=== PATIENT | female | born 1945 | race Caucasian/White ===

== ENCOUNTER 2017-07-11 14:02 | Inpatient (IN) | payer MEDICARE ==
[2017-07-11] MEDS ORDERED: HYDROcodone/ACETAMIN 5-325 MG* 1 TAB PO ONE (15:19)
[2017-07-11] MEDS ORDERED: Diltiazem TAB* 60 MG PO ONE (15:19)
--- NOTE | 2017-07-11 15:20 | RAD ---
INDICATION: Weakness COMPARISON: None TECHNIQUE: An AP portable view obtained at 1508 hours is submitted. FINDINGS: Bones/Soft Tissues: There are no acute bony findings. Cardiomediastinal: The cardiomediastinal silhouette is normal. Lungs: There are no infiltrates. Pleura: There are no pleural effusions. Other: None IMPRESSION: NO ACTIVE DISEASE.
[2017-07-11 15:41] LABS: ABS Basophils 0.1 10^3/ul (0-0.2); ABS Eosinophils 0 10^3/ul (0-0.6); ABS Lymphocytes 2.1 10^3/ul (1.0-4.8); ABS Monocytes 0.7 10^3/ul (0-0.8); ABS Neutrophils 5.5 10^3/ul (1.5-7.7); ABS Nucleated RBC 0 10^3/ul; Eosinophil % 0.3 % (0-6); Hematocrit 42 % (35-47); Hemoglobin 14.4 g/dl (12.0-16.0); Lymphocyte % 24.9 % (25-47); Mean Corpuscular HGB Conc 34 g/dl (31-36); Mean Corpuscular Hemoglobin 31 pg (27-31); Mean Corpuscular Volume 92 fL (80-97); Mean Platelet Volume 9.4 um3 (7.4-10.4); Nucleated Red Blood Cells % 0; Platelet Count 209 10^3/ul (150-450); Red Blood Count 4.61 10^6/ul (4.0-5.4); Red Cell Distribution Width 14 % (10.5-15); White Blood Count 8.4 10^3/ul (3.5-10.8)
[2017-07-11 15:48] LABS: INR 1.15 (0.77-1.02)
[2017-07-11 15:58] LABS: EGFR Non-African American 86.5 (>60)
[2017-07-11] MEDS ORDERED: Diltiazem IV* 5 MG/ML 5 ML VIAL (for loading dose/IV Push) (25 MG) IV SLOW PU ONE (16:31)
[2017-07-11] MEDS ORDERED: NS 0.9% 1000 ML* 1,000 ML IV ONE (16:38)
[2017-07-11] MEDS ORDERED: Amoxicillin/Clavulanate TAB* 500 MG PO ONE (16:53)
[2017-07-11] MEDS ORDERED: Diltiazem DRIP* 100 MG/100 ML ADDV.BAG IVPB ONE (17:24)
[2017-07-11] MEDS ORDERED: Diltiazem IV VIAL* 125 MG in NS 0.9% 100 ML* 100 ML IV ONE (17:45)
[2017-07-11 17:46] LABS: Urine Appearance Clear; Urine Blood 2+ (Negative); Urine Color Yellow; Urine Ketones Trace (Negative); Urine Protein Negative (Negative); Urine Urobilinogen Negative (Negative)
[2017-07-11] MEDS ORDERED: Diltiazem IV VIAL* 125 MG in NS 0.9% 100 ML* 100 ML IVPB SCH (18:00)
[2017-07-11] MEDS: Acetaminophen TAB* 325 MG PO PRN (21:45)
[2017-07-11] MEDS: DOXYcycline CAP(*) 100 MG PO SCH (22:32)
--- NOTE | 2017-07-11 22:58 | HP ---
CC: Richard Fontanez NP; Dr. Lundy * HISTORY AND PHYSICAL: DATE OF ADMISSION: 07/11/17 PROVIDER: Marquise Hurtado NP ATTENDING PHYSICIAN: Dr. Alexander * (report dictated by Marquise Hurtado NP). PRIMARY CARE DOCTOR: Richard Fontanez NP DIP FILLER: Dr. Lundy. CHIEF COMPLAINT: Nose bleed and rapid AFib. HISTORY OF PRESENT ILLNESS: Ms. Amor is a 71-year-old female with a past medical history of atrial fibrillation, on Xarelto; hypertension; and history of prior nose bleeds, status post cauterization, who reports around noon today she developed a spontaneous nose bleed out of her right nostril and could not control it and came to the emergency department around 2 o'clock. The emergency room physician placed a 5.5 cm Rapid Rhino into the right nostril with 8 mm of air and bleeding ceased. The patient then went into rapid atrial fibrillation with a heart rate into the 150s. She was given Cardizem 10 mg IV and 60 mg p.o., which did initially slow her rate down to the 90s, but then shortly thereafter increase to 130s to 150. Hospital Medicine was asked to evaluate for admission. PAST MEDICAL HISTORY: 1. Hypertension. 2. Atrial fibrillation. 3. History of epistaxis in 2013, where she had 2 to 3 subsequent nose bleeds and is status post cauterization. 3. Recent diagnosis of Lyme disease, currently on 1-month course of doxycycline. CURRENT MEDICATIONS: 1. Verapamil ER 120 mg p.o. daily. 2. Xarelto 20 mg p.o. daily. 3. Losartan 50 mg p.o. daily. 4. Doxycycline 100 mg p.o. b.i.d. ALLERGIES: No known allergies. FAMILY HISTORY: Her mother of a stroke and had a history of diabetes. Her father had a history of lung cancer and melanoma. SOCIAL HISTORY: Denies history of tobacco abuse. She reports that she drinks 2 to 3 alcoholic ciders a week. She currently lives alone. She has one grown son, Favian Amor, who is her healthcare proxy, his phone number is [phone]. REVIEW OF SYSTEMS: A 14-point review of systems was performed. All the pertinent positives and negatives are mentioned in the history of present illness. Otherwise are negative. PHYSICAL EXAMINATION GENERAL APPEARANCE: Well-developed elderly female, lying in the emergency room stretcher, in no acute distress, alert and oriented x3. VITAL SIGNS: Temperature 97.5, heart rate 140, respirations 20, O2 sat 97% on room air, blood pressure is 145/106. HEENT: Head is normocephalic, atraumatic. Pupils are equal and reactive to light. Oropharynx is clear. Moist mucous membranes. Right nares is packed. There is noted dry blood. NECK: Supple. LUNGS: Clear to auscultation bilaterally. Good aeration throughout. CARDIAC: S1, S2. Regular rate and rhythm. No murmur, rub, or gallop appreciated. No lower extremity edema noted. ABDOMEN: Soft, nontender, nondistended. Normal bowel sounds throughout. MUSCULOSKELETAL: No clubbing, cyanosis, or edema. Full range of motion in all extremities. Strength is 5/5 throughout. SKIN: Warm, pink, and dry. No rashes, lesions, or open wounds noted. NEUROLOGIC: Cranial nerves II through XII are grossly intact. LABORATORY DATA AND DIAGNOSTIC STUDIES: Sodium 141, potassium 3.8, chloride 106, carbon dioxide 29, anion gap 6, BUN 22, creatinine 0.67, glucose 110, lactic acid 1.3, calcium 9.7. Total bilirubin 0.90, AST 26, ALT 18, alkaline phosphatase 101. Troponin 0.01. Total protein 7.0, albumin 3.9. INR 1.15. WBC 8.4, RBC 4.61, Hgb 14.4, HCT 42, MCV 92, MCH 31, MCHC 34, RDW 14, platelet count 209. Chest x-ray, impression: No active disease. EKG showing atrial fibrillation with RVR with a rate of 154. ASSESSMENT AND PLAN: Ms. Amor is a 71-year-old female with a past medical history of atrial fibrillation, on Xarelto; history of epistaxis, status post cauterization; and history of hypertension, who had a spontaneous nose bleed today, in which she came to the emergency department and was controlled quite quickly with the balloon in the right nares. She then went into rapid atrial fibrillation. 1. Rapid atrial fibrillation with rapid ventricular response. The patient has been started on a Cardizem drip. Her initial cardiac enzyme is negative at 0.01. We will check second troponin. At this point, plan to hold tonight's dose of Xarelto due to the epistaxis. 2. Epistaxis, well controlled at this time. The balloon will need to be removed in 24 to 48 hours. I have left a message with the ENT office; however, I am awaiting a phone call back and I have not spoken to the ENT. Tomorrow, this provider will need to touch base with the ENT to discuss the plan on removing the packing. Trend H and H. At this point, the patient's H and H is normal. 3. Hypertension. At this point, plan to hold losartan and verapamil due to the patient is on a Cardizem drip. 4. Lyme disease, currently being treated with 1-month course of doxycycline. The patient is following with Dr. Clark. 5. DVT prophylaxis. Contraindicated in the setting of acute bleed. 6. Advance directives. Full code. 7. Disposition. Inpatient. TIME SPENT: Approximately 60 minutes were spent on this admission. This case was discussed with attending physician, Dr. Alexander, who agrees with the plan of care. MARQUISE HURTADO, [employer] [id number]/[facility] #: [id number] KUN
[2017-07-11 23:28] LABS: Hematocrit 39 % (35-47); Hemoglobin 13.2 g/dl (12.0-16.0)
[2017-07-12] MEDS: Acetaminophen TAB* 325 MG PO PRN (04:13)
[2017-07-12 06:26] LABS: ABS Basophils 0.1 10^3/ul (0-0.2); ABS Eosinophils 0 10^3/ul (0-0.6); ABS Lymphocytes 2.2 10^3/ul (1.0-4.8); ABS Monocytes 0.6 10^3/ul (0-0.8); ABS Neutrophils 4.4 10^3/ul (1.5-7.7); ABS Nucleated RBC 0 10^3/ul; Eosinophil % 0.5 % (0-6); Hematocrit 40 % (35-47); Lymphocyte % 29.9 % (25-47); Mean Corpuscular HGB Conc 35 g/dl (31-36); Mean Corpuscular Hemoglobin 32 pg (27-31); Mean Corpuscular Volume 91 fL (80-97); Mean Platelet Volume 9.2 um3 (7.4-10.4); Nucleated Red Blood Cells % 0; Platelet Count 202 10^3/ul (150-450); Red Blood Count 4.45 10^6/ul (4.0-5.4); Red Cell Distribution Width 13 % (10.5-15); White Blood Count 7.4 10^3/ul (3.5-10.8)
[2017-07-12 06:43] LABS: EGFR Non-African American 108.6 (>60)
[2017-07-12] MEDS ORDERED: Verapamil SR CAP* 180 MG PO SCH (11:00)
[2017-07-12] MEDS ORDERED: Losartan TAB* 25 MG PO SCH (11:00)
[2017-07-12] MEDS: DOXYcycline CAP(*) 100 MG PO SCH (11:50)
--- NOTE | 2017-07-12 12:28 | PN ---
Subjective Date of Service: 07/12/17 Interval History: No significant nose bleed with pack in place. She can feel her atrial fib when it is rapid. She states she has episodes of atrial fib many or most days. Objective Active Medications: Acetaminophen (Tylenol Tab*) 650 mg PO Q4H PRN PRN Reason: PAIN Last Admin: 07/12/17 04:13 Dose: 650 mg Doxycycline Hyclate (Vibramycin Cap(*)) 100 mg PO BID HA Last Admin: 07/12/17 11:50 Dose: 100 mg Diltiazem HCl 125 mg/ Sodium (Chloride) 125 mls @ 5 mls/hr IV ED ONCE ONE PRN Reason: Protocol Stop: 07/12/17 18:44 Last Admin: 07/11/17 17:52 Dose: 5 mls/hr Diltiazem HCl 125 mg/ Sodium (Chloride) 125 mls @ 5 mls/hr IVPB .PER PARAMETERS HA; 5 MG/HR PRN Reason: Protocol Last Admin: 07/12/17 08:50 Dose: 8 mls/hr Losartan Potassium (Cozaar Tab*) 25 mg PO DAILY [facility] Last Admin: 07/12/17 10:49 Dose: 25 mg Verapamil HCl (Calan Sr Cap*) 180 mg PO DAILY [facility] Last Admin: 07/12/17 11:15 Dose: 180 mg Vital Signs - 8 hr 07/12/17 07/12/17 07/12/17 04:30 04:45 05:00 Temperature Pulse Rate 95 97 91 Respiratory 14 19 18 Rate Blood Pressure 176/119 167/103 172/109 (mmHg) O2 Sat by Pulse 97 96 95 Oximetry 07/12/17 07/12/17 07/12/17 05:15 05:17 05:30 Temperature Pulse Rate 97 94 93 Respiratory 18 21 20 Rate Blood Pressure 208/189 155/112 152/102 (mmHg) O2 Sat by Pulse 97 95 93 Oximetry 07/12/17 07/12/17 07/12/17 05:45 06:00 06:15 Temperature Pulse Rate 95 99 98 Respiratory 18 15 15 Rate Blood Pressure 161/98 161/104 159/115 (mmHg) O2 Sat by Pulse 93 95 96 Oximetry 07/12/17 07/12/17 07/12/17 06:45 07:00 07:15 Temperature Pulse Rate 101 93 100 Respiratory 13 19 19 Rate Blood Pressure 142/101 151/109 162/103 (mmHg) O2 Sat by Pulse 96 95 94 Oximetry 07/12/17 07/12/17 07/12/17 07:30 07:45 07:50 Temperature 99.1 F Pulse Rate 97 96 Respiratory 20 15 Rate Blood Pressure 150/104 139/98 (mmHg) O2 Sat by Pulse 94 97 Oximetry 07/12/17 07/12/17 07/12/17 08:00 08:15 08:30 Temperature Pulse Rate 95 108 96 Respiratory 12 20 12 Rate Blood Pressure 134/101 156/111 152/100 (mmHg) O2 Sat by Pulse 96 97 96 Oximetry 07/12/17 07/12/17 07/12/17 08:45 09:00 09:31 Temperature Pulse Rate 102 107 115 Respiratory 13 17 20 Rate Blood Pressure 160/109 153/117 154/83 (mmHg) O2 Sat by Pulse 96 96 95 Oximetry 07/12/17 07/12/17 07/12/17 09:45 10:00 10:15 Temperature Pulse Rate 101 98 93 Respiratory 27 20 21 Rate Blood Pressure 127/91 159/86 141/94 (mmHg) O2 Sat by Pulse 96 97 96 Oximetry 07/12/17 07/12/17 07/12/17 10:30 11:00 11:01 Temperature Pulse Rate 100 115 96 Respiratory 21 15 18 Rate Blood Pressure 149/103 162/114 (mmHg) O2 Sat by Pulse 96 94 95 Oximetry 07/12/17 07/12/17 07/12/17 11:15 11:30 11:46 Temperature Pulse Rate 94 95 91 Respiratory 13 28 21 Rate Blood Pressure 141/103 147/103 148/90 (mmHg) O2 Sat by Pulse 98 97 97 Oximetry 07/12/17 12:00 Temperature Pulse Rate 98 Respiratory 12 Rate Blood Pressure 142/93 (mmHg) O2 Sat by Pulse 96 Oximetry Oxygen Devices in Use Now: None Appearance: Alert, partly up in ICU bed. In good spirits. Looks comfortable. Eyes: No Scleral Icterus Cardiovascular: No Edema, - - irreg Extremities: No Edema, No Clubbing, Cyanosis, - Skin: No Rash or Ulcers, No Nodules or Sclerosis, - Neurological: Alert and Oriented x 3, NL Sensation Result Diagrams: 07/12/17 06:11 07/12/17 06:11 Microbiology and Other Data: Microbiology 07/11/17 18:30 Nasal Screen MRSA (PCR)(MADHAV) - Final Nasal Mrsa Not Detected Assess/Plan/Problems-Billing Assessment: - Patient Problems (1) Atrial fibrillation Current Visit: Yes Status: Acute Code(s): I48.91 - UNSPECIFIED ATRIAL FIBRILLATION SNOMED Code(s): 99331149 Comment: Increase verapamil to 180 mg. Re-start rivaroxaban. (2) Epistaxis Current Visit: Yes Status: Acute Code(s): R04.0 - EPISTAXIS SNOMED Code(s) : 829998387 Comment: Continue doxycycline. Fup with ENT. Hct 40 07/12. (3) HTN (hypertension) Current Visit: Yes Status: Acute Code(s): I10 - ESSENTIAL (PRIMARY) HYPERTENSION SNOMED Code(s): 59202931 Comment: Resume losartan at home dose.
[2017-07-12] MEDS ORDERED: Potassium Chlor TAB* 10 MEQ TAB.ER PO ONE (12:30)
[2017-07-12] MEDS ORDERED: Rivaroxaban TAB(*) 20 MG TAB PO SCH (14:00)
[2017-07-12] MEDS ORDERED: Metoprolol Tartrate TAB* 25 MG PO SCH (16:10)
[2017-07-12 18:38] VITALS: BP 151/96
--- NOTE | 2017-07-13 10:59 | DS ---
CC: Richard Fontanez HEALTH COMPANION; Dr. Montague.* DISCHARGE SUMMARY: DATE OF ADMISSION: 07/11/17 DATE OF DISCHARGE: 07/12/17 HISTORY OF PRESENT ILLNESS: This 71-year-old woman presented with epistaxis in the emergency room. She went into atrial fibrillation with rapid ventricular response. She had not taken her verapamil that evening yet. She was placed on a diltiazem infusion. She told me that she frequently gets episodes of atrial fibrillation may be on most or many days. She is able to tell when her heart rate is quite fast. She had a nasal pack in place in the emergency room. Her hematocrit was stable here. In the morning, she was given verapamil 180 mg by mouth, which is a step up from what she took at home, 120 mg. The diltiazem was stopped. Her heart rate was fairly well controlled until she did anything. I then gave her metoprolol 12.5 mg, which she used to take b.i.d. at home. Last heart rate recorded after the metoprolol was 94. [facility] will [facility] on 07/14[facility]17 at 9:45 in the morning for removal of her packing. She was instructed not to take Xarelto until she sees ENT provider. She did not get any Xarelto at anytime during this hospital stay. FINAL DIAGNOSES: 1. Epistaxis. 2. Recurrent atrial fibrillation. 3. Hypertension. DISCHARGE MEDICATIONS: 1. Losartan one half of 50 mg tablet daily. 2. Metoprolol tartrate 12.5 mg every 12 hours. 3. Verapamil SR 180 mg daily. 4. Doxycycline 100 mg b.i.d. Rivaroxaban is on hold. [id number]/[facility] #: [id number] MTDD
== END 2017-07-12 17:52 | disposition home or self-care (01) | DRG 309 ==
LOC: ED 14:02 → ICU 17:43
PROVIDERS: ADMIT Internal Medicine; ATTEND Internal Medicine
PROC: 2Y41X5Z Packing of Nasal Region using Packing Material (ICD-10-PCS; principal; 2017-07-12)
DX: I48.91 Unspecified atrial fibrillation (principal); A69.20 Lyme disease, unspecified; R04.0 Epistaxis; I10 Essential (primary) hypertension; Z82.3 Family history of stroke; Z83.3 Family history of diabetes mellitus; Z80.1 Family history of malignant neoplasm of trachea, bronchus and lung; Z80.8 Family history of malignant neoplasm of other organs or systems; Z72.89 Other problems related to lifestyle
CPT/HCPCS: 36415; 71045; 80048; 80053; 81003; 81015; 83605; 83735; 84484; 85014; 85018; 85025; 85610; 86850; 86900; 86901; 87086; 87641; 93005; 99285; A9270-GY

== ENCOUNTER 2017-08-05 06:58 | Emergency (ER) | payer MEDICARE ==
[2017-08-05] MEDS ORDERED: Lidocaine 2% PF * 5 ML VIAL ONE (07:38)
[2017-08-05] MEDS ORDERED: DOXYcycline CAP(*) 100 MG PO ONE (07:39)
[2017-08-05 08:07] VITALS: BP 141/91
--- NOTE | 2017-08-05 08:49 | ED ---
Willie Dodson Tecjoon, scribed for Ruba Gilmore MD on 08/05/17 at 0738 . Skin Complaint - HPI Summary HPI Summary: This patient is a 71 year old female presenting to [facility] with a chief complaint of tick bite since approx. yesterday. Patient states that she had a tick bite to her right arm. Patient pulled out the tick but doesnt think she got everything. Patient is unsure how long the tick was attached to her arm. The pain is rated 2/10 in severity. Symptoms aggravated by nothing. Symptoms alleviated by nothing. The patient treated the sx with nothing [employer]. Patient additionally reports right arm pain. - History of Current Complaint Chief Complaint: EDAnimalBite Time Seen by Provider: 08/05/17 07:25 Stated Complaint: TICK BITE Hx Obtained From: Patient Onset/Duration: Started Days Ago, Still Present Skin Exposure Onset/Duration: Days Ago Timing: Constant Onset Severity: Mild Current Severity: Mild Pain Intensity: 2 Pain Scale Used: 0-10 Numeric Skin Location: Arm - right Character: Redness Aggravating Symptom(s): Nothing Alleviating Symptom(s): Nothing Associated Signs & Symptoms: Tenderness - Additional Pertinent History Primary Care Physician: [id number] - Allergy/Home Medications Allergies/Adverse Reactions: Allergies Allergy/AdvReac Type Severity Reaction Status Date / Time No Known Allergies Allergy Verified 08/05/17 07:20 PMH/Surg Hx/FS Hx/Imm Hx Previously Healthy: Yes Cardiovascular History: Reports: Hx Hypertension Sensory History: Denies: Hx Contacts or Glasses, Hx Hearing Aid Opthamlomology History: Denies: Hx Contacts or Glasses - Cancer History Hx Chemotherapy: No Hx Radiation Therapy: No Infectious Disease History: No Infectious Disease History: Denies: Traveled Outside the [place] in Last 30 Days - Family History Known Family History: Positive: Hypertension - Social History Lives: With Family Alcohol Use: Occasionally Alcohol Amount: 3 5% beverages per week Substance Use Type: Reports: None Smoking Status (MU): Former Smoker Review of Systems Negative: Fever Positive: Other - right arm pain Positive: Other - tick finn on right arm All Other Systems Reviewed And Are Negative: Yes Physical Exam - Summary Physical Exam Summary: GENERAL: Patient is a well developed and nourished female who is lying comfortable in the stretcher. Patient is not in any acute respiratory distress. HEAD AND FACE: Normocephalic EYES: PERRLA, EOMI x 2. EARS: Hearing grossly intact. MOUTH: Oropharynx within normal limits. NECK: Supple, trachea is midline, no adenopathy, no JVD, no carotid bruit. CHEST: Symmetric, no tenderness at palpation LUNGS: Clear to auscultation bilaterally. No wheezing or crackles. CVS: Regular rate and rhythm, S1 and S2 present, no murmurs or gallops appreciated. ABDOMEN: Soft, non-tender. Bowel sounds are normal. No abdominal abnormal pulsations. EXTREMITIES: Full ROM in all major joints, no edema, no cyanosis or clubbing. NEURO: Alert and oriented x 3. No acute neurological deficits. Speech is normal and follows commands. SKIN: Tick finn on the right antecubital fossa at the lateral aspect Triage Information Reviewed: Yes Vital Signs On Initial Exam: Initial Vitals Temp Pulse Resp BP Pulse Ox 98.0 F 81 16 166/98 98 08/05/17 07:00 08/05/17 07:00 08/05/17 07:00 08/05/17 07:00 08/05/17 07:00 Vital Signs Reviewed: Yes Procedures - Procedure Summary Procedure Summary: Tick Bite Removal: Patient was injected with 1cc of 2% lidocaine in area of tick bite (right antecubital forearm). Tweezer was used to remove embedded tick bite. There were no complications Diagnostics - Vital Signs Vital Signs Temp Pulse Resp BP Pulse Ox 08/05/17 07:00 98.0 F 81 16 166/98 98 - Laboratory Lab Statement: Any lab studies that have been ordered have been reviewed, and results considered in the medical decision making process. Course/Dx - Course Course Of Treatment: This patient is a 71 year old female presenting to [facility] with a chief complaint of tick bite since approx. yesterday. Patient states that she had a tick bite to her right arm. Patient pulled out the tick but doesn t think she got everything. In the ED course the patient was given doxycycline. Patient's tick bite area was numbed with lidocaine and embedded tick bite was removed. Patient will be discharged with a dx of tick bite. Patient is advised to follow up with PCP in 3 days. The patient is agreeable with this plan. - Diagnoses Provider Diagnoses: Tick bite Discharge - Sign-Out/Discharge Documenting (check all that apply): Discharge/Admit/Transfer - Discharge Plan Condition: Stable Disposition: HOME Patient Education Materials: Lyme Disease (ED), Tick Bite (ED) Referrals: Richard Fontanez, HELP DESK AGENT [Primary Care Provider] - 3 Days Additional Instructions: Return to the ED for any new or worsening symptoms. - Billing Disposition and Condition Condition: STABLE Disposition: HOME The documentation as recorded by the Willie pizarro Tecjoon accurately reflects the service I personally performed and the decisions made by Mando torres Tudie-Ann, MD.
== END 2017-08-05 08:06 | disposition home or self-care (01) ==
LOC: ED 06:58
DX: S50.361A Insect bite (nonvenomous) of right elbow, initial encounter (principal); W57.XXXA Bitten or stung by nonvenomous insect and other nonvenomous arthropods, initial encounter; Y93.9 Activity, unspecified; Y92.9 Unspecified place or not applicable; I10 Essential (primary) hypertension; Z87.891 Personal history of nicotine dependence
CPT/HCPCS: 99281; A9270-GY

== ENCOUNTER 2018-09-30 12:46 | Emergency (ER) | payer MEDICARE ==
--- OUTSIDE RECORDS SUMMARY | 2018-09-30 13:10 | XMS REPORT | Continuity of Care Document ---
:1945 External Reference #:[id number] Author Name POOJA Almaraz Address [address] [place] [address] Care Team Providers Name Role Phone POOJA Almaraz Care Team Information Film Splicer Unavailable Payers Date Identification Numbers Payment Provider Subscriber Effective: 2010 Policy Number: [id number] Medicare - Bswny Umd Hector Cartagena Expires: 2017 PayID: [id number] [address] [place] [address] Effective: 2013 Policy Number: [id number] Maribel Hector Cartagena Expires: 2017 [facility] Claim [address] [place] [address] Effective: 2017 Policy Number: [employer] Hector Cartagena [id number] [facility] PayID: [id number] [address] [address] [place] [address] Family History Date Family Member(s) Observation Comments Onset: (08/1965) Father Cancer, Prostate Cancer had spread to some lymph glands. He smoked heavily. Onset: (02/1976) Father Malignant Melanoma : (02/1976) Father due to Cancer Onset: (12/1990) Mother Diabetes Onset: (12/1988) Mother Hypertension : (02/2001) Mother due to Stroke She was 1 month from being age 90. 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 09/07/2018 1% Gel to right knee 4 [facility], [employer] times daily if needed for pain Losartan Potassium 1 by mouth every 90tabs I10 [facility] R. 09/06/2018 50mg Tablets day [facility], [employer] Verapamil HCL ER 1 by mouth daily 90caps I10 [facility] R. 09/06/2018 120mg Caps ER for blood [facility], [employer] 24HR pressure Hydrochlorothiazide 1 by mouth every 30tabs R60.9 [facility] R. 06/26/2018 25mg day [facility], [employer] Tablets Atorvastatin Calcium 1 by mouth every 90tabs I10 [facility] R. 01/05/2018 20mg day [facility], [facility] Tablets Atenolol Take One Tablet 30tabs I10 [facility] R. 09/21/2017 25mg Tablets By Mouth Every [facility], [employer] Day Discontinue Metoprolol Vitamin D3 1 po some days [facility] R. 06/27/2013 1000Unit Capsules [facility] Doxycycline Hyclate Unknown 100mg Capsules Sulfamethoxazole-Trimetho Take One Tablet Unknown prim By Mouth Twice A 400-80mg Tablets Day Xarelto Take One Tablet Unknown 20mg Tablets By Mouth Every Day Cardiovid Plus Unknown Capsules Enzyme Digest daily Unknown Capsules Fish Oil Unknown Methylcobalamin Unknown Activated Vegetable Unknown Charcoal 560mg Capsules Probiotic Unknown Coq-10 1 by mouth every Unknown 150mg Capsules day Calcium 600 1000mg by mouth Unknown 600mg Tablets weekly History Medications Verapamil HCL ER 1 by mouth every 30caps I10 [facility] R[facility] 08/28/2018 - 100mg Caps ER day [facility], [employer] 09/06/2018 24HR Losartan Potassium 1 by mouth every 30tabs I10 [facility] R. 08/28/2018 - 100mg day [facility], [facility] 09/06/2018 Tablets Losartan Potassium 1 by mouth every 30tabs I10 [facility] R. 07/27/2018 - 50mg Tablets day [facility], [facility] 08/28/2018 Verapamil HCL ER 1 by mouth daily 30caps I10 [facility] R. 07/27/2018 - 120mg Caps ER for blood [facility], [facility] 08/28/2018 24HR pressure, replaces diltiazem Hydrochlorothiazide 1 by mouth every 30tabs R60.9 [facility] 06/[facility]2018 - 12.5mg day for swelling [facility], [facility] 06/26/2018 Tablets Verapamil HCL ER Take One Capsule 90caps I10 [facility] R. 08/21/2017 - 180mg Caps ER By Mouth Every [facility], [facility] 07/27/2018 24HR Day Losartan Potassium Take One Tablet 30tabs I10 [facility] 08/21/2017 - 25mg Tablets Once Daily [facility] 07/27/2018 Doxycycline Hyclate take 1 capsule 60caps R53.81 [facility] R. 08/10/2017 - 100mg by mouth 2 times [facility] 09/21/2017 Capsules per day Clotrimazole slowly dissolve 70units B37.0 [facility] R. 07/17/2017 - 10mg Lozenges in mouth 5 times [facility] 08/16/2017 daily for 14 days Doxycycline Hyclate 1 tab by mouth 56tabs [facility] 06/27/2017 - 100mg twice a day for Shortle, [employer] 08/10/2017 Tablets 28 days for infection Verapamil HCL ER take one tablet 30tabs I10 [facility] 01/13/2017 - 120mg Tablets by mouth every MD Elizabeth 08/21/2017 ER day; replaces metoprolol Metoprolol Succinate ER 1 by mouth every 30tabs I10 [facility] R. 12/23/2016 - 50mg day [facility] 01/13/2017 Tablets ER 24HR Metoprolol Tartrate take one tablet 60tabs I48.91 [facility] 12/02/2016 - 25mg by mouth twice a [facility] 12/23/2016 Tablets day for heart and blood pressure Diltiazem CD 1 by mouth daily 90caps I48.91 [facility] 03/01[facility]2016 - 180mg Caps ER 24HR for blood [facility] 12/02/2016 pressure and heart rate. Losartan Potassium take one tablet 30tabs I10 [facility] R. 02/09/2016 - 50mg Tablets by mouth every [facility] 08/21/2017 day for blood pressure Diltiazem CD 1 po daily, 30caps I48.0 [facility] R. 02/09/2016 - 120mg Caps ER 24HR replaces [facility] 03/01/2016 bisoprolol Bisoprolol 1 by mouth every 30tabs I10 [facility] R. 01/19/2016 - Fumarate/Hydrochlorothiaz day For Blood [facility] 02/09/2016 lily Pressure 5-6.25mg Tablets Losartan Potassium 1 po daily for 30tabs I10 [facility] R. 11/27/2015 - 25mg Tablets blood pressure, [facility] 02/09/2016 replaces amlodipine Losartan Potassium 1 po daily for 30tabs I10 [facility]. 09/08/2015 - 25mg Tablets blood pressure, [facility] 09/22/2015 replaces amlodipine Econazole Nitrate 1 [facility] B35.3 [facility] 09/04/2015 - 1% Cream affected area MD Elizabeth 04/14/2016 twice a day for 2 weeks Tamiflu one by mouth bid 10caps J11.89 [facility] R. 08/03/2015 - 75mg Capsules for 5 days [facility] 08/13/2015 Ventolin HFA inhale two puffs 18units J11.89 [facility] R. 08/03/2015 - 108(90Base) by mouth every 4 [facility] 04/14/2016 mcg/Act Aerosol hours as needed for wheeze Doxycycline Hyclate 1 tab by mouth 42caps S80.929A [facility] 04/06/2015 - 100mg twice a day x 21 Davina, 04/14/20162016 [facility] Bisoprolol Take One Tablet 30tabs I10 [facility] R. 01/03/2014 - Fumarate/Hydrochlorothiaz By Mouth For [facility] 01/19/2016 lily Heart And Blood 2.5-6.25mg Tablets Pressure Amlodipine Besylate Take One Tablet 90tabs I10 [facility] R. 06/27/2013 - 10mg By Mouth Once [facility] 11/27/2015 Tablets Daily Krill Oil Calion-3 several times [facility] 06/27/2013 - 300mg weekly [facility] 06/16/2017 Capsules Magnesium Taurate 1 or 2 daily [facility] 06/27/2013 - 125mg [facility] 01/13/2017 Amlodipine Besylate 1 po daily for 30tabs 401.9 [facility] R. 05/30/2013 - 5mg Tablets blood pressure [facility] 06/27/2013 Lisinopril 1 po qd 30tabs 401.9 [facility]. 04/30/2013 - 10mg Tablets [facility] 05/30/2013 One Daily [facility] 04/16/2013 - Tablets [facility] 04/14/2016 Calcium + D [facility] R. 04/16/2013 - [facility] 06/27/2013 [id number] Chewtabs Lisinopril/Hydrochlorothi 1 po qd for 30tabs 401.9 [facility] 04/16/2013 - azide blood pressure [facility] 04/16/2013 10-12.5mg Tablets Bisoprolol 1 po daily for 30tabs 401.9 [facility]. 04/16/2013 - Fumarate/Hydrochlorothiaz heart and blood [facility] 01/03/2014 lily pressure 5-6.25mg Tablets Xarelto take one tablet Chris Quinones MD - 20mg Tablets by mouth every 06/26/2018 day Multivitamins W/ Unknown - A,B,D,E,And K Plus Zinc 11/09/2017 Capsules Magnesium Sulfate Unknown - 375mg 01/05/2018 Capsules Krill Oil 1 by mouth every Unknown - 1000mg Capsules day 01/05/2018 Metoprolol Succinate ER 1/2 in the Am & I10 Unknown - 25mg 1/2 in the PM 09/21/2017 Tablets ER 24HR Atorvastatin Calcium Floyd, - 80mg MD Rashaad 01/05/2018 Tablets Cataplex B Vitamin Unknown - 08/28/2018 Immunizations CPT Code Status Date Vaccine Lot # [id number] Given 10/17/2013 Tdap (Adacel) [id number] Refused 12/02/2016 Influenza Virus Vaccine, Quadrivalent, 3 Yr > Quad , Preserv Free Vital Signs Date Vital Result Comment 09/07/2018 11:39am Weight 174.00 lb Weight 78.926 kg BP Systolic 130 mmHg BP Diastolic 84 mmHg Heart Rate 84 /min Body Temperature 98.5 F Respiratory Rate 16 /min 08/28/2018 3:00pm Weight 176.00 lb Weight 79.834 kg BP Systolic 142 mmHg BP Diastolic 84 mmHg Heart Rate 76 /min Body Temperature 98.0 F Respiratory Rate 18 /min O2 % BldC Oximetry 96 % 07/27/2018 2:16pm Weight 177.00 lb Weight 80.287 kg BP Systolic 140 mmHg BP Diastolic 70 mmHg Heart Rate 72 /min Body Temperature 98.6 F Respiratory Rate 18 /min 06/26/2018 10:46am Weight 175.00 lb Weight 79.380 kg BP Systolic 138 mmHg BP Diastolic 76 mmHg Heart Rate 56 /min Body Temperature 98.1 F Respiratory Rate 18 /min O2 % BldC Oximetry 99 % 06/05/2018 10:47am Weight 176.00 lb Weight 79.834 kg BP Systolic 148 mmHg BP Diastolic 82 mmHg Heart Rate 72 /min Body Temperature 98.3 F Respiratory Rate 16 /min O2 % BldC Oximetry 98 % 01/05/2018 4:27pm Weight 163.00 lb Weight 73.937 kg BP Systolic 154 mmHg BP Diastolic 82 mmHg Heart Rate 53 /min Body Temperature 98.4 F O2 % BldC Oximetry 98 % 11/09/2017 9:53am Weight 160.00 lb Weight 72.576 kg BP Systolic 148 mmHg BP Diastolic 82 mmHg Heart Rate 52 /min Body Temperature 98.2 F Respiratory Rate 16 /min O2 % BldC Oximetry 98 % 09/25/2017 1:14pm Weight 164.00 lb Weight 74.390 kg BP Systolic 148 mmHg BP Diastolic 82 mmHg Heart Rate 70 /min Body Temperature 98.5 F Respiratory Rate 16 /min Height 63 inches 5'3" BMI (Body Mass Index) 29.0 kg/m2 09/21/2017 11:32am Weight 164.00 lb Weight 74.390 kg BP Systolic 184 mmHg BP Diastolic 95 mmHg Heart Rate 64 /min Body Temperature 97.3 F O2 % BldC Oximetry 95 % 08/21/2017 10:35am Weight 168.00 lb Weight 76.205 kg BP Systolic 112 mmHg BP Diastolic 74 mmHg Heart Rate 74 /min Body Temperature 97.7 F Respiratory Rate 15 /min O2 % BldC Oximetry 97 % 08/16/2017 10:16am Weight 168.00 lb Weight 76.205 kg BP Systolic 142 mmHg BP Diastolic 88 mmHg Heart Rate 68 /min Body Temperature 98.1 F Height 63 inches 5'3" BMI (Body Mass Index) 29.8 kg/m2 O2 % BldC Oximetry 98 % 08/10/2017 10:12am Weight 172.00 lb Weight 78.019 kg BP Systolic 140 mmHg BP Diastolic 100 mmHg Heart Rate 94 /min Body Temperature 97.0 F Respiratory Rate 18 /min O2 % BldC Oximetry 97 % 08/07/2017 11:27am Weight 174.00 lb Weight 78.926 kg BP Systolic 140 mmHg BP Diastolic 78 mmHg Heart Rate 80 /min Body Temperature 97.0 F Respiratory Rate 16 /min O2 % BldC Oximetry 97 % 07/17/2017 11:30am Weight 173.00 lb Weight 78.473 kg BP Systolic 142 mmHg BP Diastolic 82 mmHg Heart Rate 80 /min Body Temperature 97.3 F Respiratory Rate 16 /min O2 % BldC Oximetry 99 % 07/06/2017 10:12am Weight 175.00 lb Weight 79.380 kg BP Systolic 148 mmHg BP Diastolic 82 mmHg Heart Rate 84 /min Body Temperature 98.2 F Respiratory Rate 12 /min 06/23/2017 2:35pm Weight 175.00 lb Weight 79.380 kg BP Systolic 158 mmHg BP Diastolic 96 mmHg Heart Rate 79 /min Body Temperature 96.6 F Respiratory Rate 20 /min O2 % BldC Oximetry 98 % 06/19/2017 9:53am Weight 176.00 lb Weight 79.834 kg BP Systolic 148 mmHg BP Diastolic 102 mmHg Heart Rate 93 /min Body Temperature 97.1 F Respiratory Rate 18 /min O2 % BldC Oximetry 98 % 06/16/2017 9:58am Weight 177.00 lb Weight 80.287 kg BP Systolic 166 mmHg BP Diastolic 102 mmHg Heart Rate 105 /min Body Temperature 96.5 F Respiratory Rate 18 /min O2 % BldC Oximetry 98 % 01/30/2017 10:36am Weight 188.00 lb Weight 85.277 kg BP Systolic 140 mmHg BP Diastolic 100 mmHg Heart Rate 72 /min Body Temperature 98.2 F 01/13/2017 11:39am Weight 186.00 lb Weight 84.370 kg BP Systolic 176 mmHg Provider notified immediately BP Diastolic 112 mmHg Provider notified immediately Heart Rate 105 /min Body Temperature 97.8 F Respiratory Rate 18 /min O2 % BldC Oximetry 99 % 12/23/2016 11:28am Weight 185.00 lb Weight 83.916 kg BP Systolic 180 mmHg BP Diastolic 130 mmHg Heart Rate 98 /min Body Temperature 96.0 F Respiratory Rate 16 /min 12/02/2016 3:53pm Weight 183.00 lb Weight 83.009 kg BP Systolic 150 mmHg BP Diastolic 88 mmHg Heart Rate 112 /min Body Temperature 99.3 F Respiratory Rate 16 /min O2 % BldC Oximetry 98 % 04/14/2016 3:10pm Weight 183.00 lb Weight 83.009 kg BP Systolic 156 mmHg BP Diastolic 94 mmHg Heart Rate 122 /min Body Temperature 98.7 F Respiratory Rate 16 /min Height 63 inches 5'3" BMI (Body Mass Index) 32.4 kg/m2 O2 % BldC Oximetry 98 % 03/01/2016 2:51pm Weight 181.00 lb Weight 82.102 kg BP Systolic 140 mmHg BP Diastolic 82 mmHg Heart Rate 80 /min Body Temperature 97.8 F Respiratory Rate 16 /min 02/09/2016 2:56pm Weight 186.00 lb Weight 84.370 kg BP Systolic 175 mmHg BP Diastolic 110 mmHg Heart Rate 92 /min 01/19/2016 3:06pm Weight 184.00 lb Weight 83.462 kg BP Systolic 185 mmHg BP Diastolic 130 mmHg Heart Rate 100 /min 11/27/2015 2:55pm Weight 185.00 lb Weight 83.916 kg BP Systolic 140 mmHg BP Diastolic 100 mmHg Heart Rate 100 /min Body Temperature 98.6 F O2 % BldC Oximetry 98 % 09/22/2015 10:47am Weight 180.00 lb Weight 81.648 kg BP Systolic 122 mmHg BP Diastolic 78 mmHg Heart Rate 93 /min Body Temperature 98.3 F 09/08/2015 9:39am Weight 182.00 lb Weight 82.555 kg BP Systolic 116 mmHg BP Diastolic 80 mmHg Heart Rate 76 /min 09/04/2015 11:06am Weight 183.00 lb Weight 83.009 kg BP Systolic 145 mmHg BP Diastolic 100 mmHg Heart Rate 111 /min Body Temperature 98.8 F 08/03/2015 2:44pm Weight 184.00 lb Weight 83.462 kg BP Systolic 139 mmHg BP Diastolic 95 mmHg Heart Rate 95 /min Body Temperature 102.4 F O2 % BldC Oximetry 98 % 04/06/2015 3:09pm Weight 186.00 lb Weight 84.370 kg BP Systolic 130 mmHg BP Diastolic 80 mmHg Heart Rate 96 /min Body Temperature 98.1 F 05/13/2014 10:56am Weight 177.00 lb Weight 80.287 kg BP Systolic 150 mmHg BP Diastolic 80 mmHg Heart Rate 68 /min 11/11/2013 3:42pm Weight 172.00 lb Weight 78.019 kg BP Systolic 142 mmHg BP Diastolic 72 mmHg Heart Rate 60 /min 11/04/2013 2:28pm Weight 172.00 lb Weight 78.019 kg BP Systolic 128 mmHg BP Diastolic 64 mmHg Heart Rate 60 /min 10/17/2013 2:06pm Weight 170.00 lb Weight 77.112 kg BP Systolic 112 mmHg BP Diastolic 82 mmHg Heart Rate 76 /min Height 63 inches 5'3" BMI (Body Mass Index) 30.1 kg/m2 07/18/2013 2:37pm Weight 175.00 lb Weight 79.380 kg BP Systolic 154 mmHg BP Diastolic 82 mmHg Heart Rate 64 /min 06/27/2013 10:09am Weight 173.00 lb Weight 78.473 kg BP Systolic 190 mmHg BP Diastolic 100 mmHg Heart Rate 56 /min 05/30/2013 12:03pm Weight 173.00 lb Weight 78.473 kg BP Systolic 222 mmHg BP Diastolic 112 mmHg Heart Rate 60 /min Body Temperature 98.6 F 04/30/2013 10:50am Weight 173.00 lb Weight 78.473 kg BP Systolic 180 mmHg BP Diastolic 100 mmHg Heart Rate 64 /min Body Temperature 96.8 F 04/16/2013 2:15pm Weight 175.00 lb Weight 79.380 kg BP Systolic 212 mmHg 206/120 BP Diastolic 118 mmHg 206/120 Heart Rate 86 /min Body Temperature 98.7 F Height 64 inches 5'4" BMI (Body Mass Index) 30.0 kg/m2 O2 % BldC Oximetry 99 % Results Test Date Facility Test Result H/L Range Note CBC Auto Diff 05/14/2018 [facility] White Blood 4.7 10^3/uL N 3.5-10.8 [phone] Count Red Blood Count 4.56 10^6/uL N 4.00-5.40 Hemoglobin 13.8 g/dL N 12.0-16.0 Hematocrit 42 % N 35-47 Mean Corpuscular Volume 92 fL N 80-97 Mean Corpuscular Hemoglobin 30 pg N 27-31 Mean Corpuscular HGB Conc 33 g/dL N 31-36 Red Cell Distribution Width 13 % N 10.5-15 Platelet Count 224 10^3/uL N 150-450 Mean Platelet Volume 8.9 fL N 7.4-10.4 Abs Neutrophils 1.7 10^3/uL N 1.5-7.7 Abs Lymphocytes 2.3 10^3/uL N 1.0-4.8 Abs Monocytes 0.6 10^3/uL N 0-0.8 Abs Eosinophils 0 10^3/uL N 0-0.6 Abs Basophils 0 10^3/uL N 0-0.2 Abs Nucleated RBC 0 10^3/uL Granulocyte % 36.4 % Lymphocyte % 48.5 % Monocyte % 13.7 % Eosinophil % 1.0 % Basophil % 0.4 % Nucleated Red Blood Cells % 0.1 Comp Metabolic Panel 05/14/2018 [facility] Sodium 139 mmol/L N 135-145 [phone] Potassium 4.5 mmol/L N 3.5-5.0 Chloride 106 mmol/L N 101-111 Co2 Carbon Dioxide 28 mmol/L N 22-32 Anion Gap 5 mmol/L N 2-11 Glucose 86 mg/dL N 70-100 Blood Urea Nitrogen 18 mg/dL N 6-24 Creatinine 0.86 mg/dL N 0.51-0.95 BUN/Creatinine Ratio 20.9 High 8-20 Calcium 9.4 mg/dL N 8.6-10.3 Total Protein 6.6 g/dL N 6.4-8.9 Albumin 4.0 g/dL N 3.2-5.2 Globulin 2.6 g/dL N 2-4 Albumin/Globulin Ratio 1.5 N 1-3 Total Bilirubin 1.00 mg/dL N 0.2-1.0 Alkaline Phosphatase 108 U/L High 34-104 Alt 25 U/L N 7-52 Ast 28 U/L N 13-39 Egfr Non- 64.7 >60 Egfr 78.3 >60 1 Laboratory test 04/16/2018 [facility] Anti Diuretic 1.5 pg/mL <4.3 2 finding [phone] Hormone CBC Auto Diff 04/16/2018 [facility] White Blood 5.0 10^3/uL N 3.5-10.8 [phone] Count Red Blood Count 4.51 10^6/uL N 4.00-5.40 Hemoglobin 14.0 g/dL N 12.0-16.0 Hematocrit 42 % N 35-47 Mean Corpuscular Volume 93 fL N 80-97 Mean Corpuscular Hemoglobin 31 pg N 27-31 Mean Corpuscular HGB Conc 33 g/dL N 31-36 Red Cell Distribution Width 14 % N 10.5-15 Platelet Count 226 10^3/uL N 150-450 Mean Platelet Volume 8.7 fL N 7.4-10.4 Abs Neutrophils 2.2 10^3/uL N 1.5-7.7 Abs Lymphocytes 2.2 10^3/uL N 1.0-4.8 Abs Monocytes 0.5 10^3/uL N 0-0.8 Abs Eosinophils 0.1 10^3/uL N 0-0.6 Abs Basophils 0 10^3/uL N 0-0.2 Abs Nucleated RBC 0 10^3/uL Granulocyte % 43.9 % Lymphocyte % 45.2 % Monocyte % 9.4 % Eosinophil % 1.1 % Basophil % 0.4 % Nucleated Red Blood Cells % 0.1 Comp Metabolic Panel 04/16/2018 [facility] Sodium 142 mmol/L N 135-145 [phone] Potassium 4.1 mmol/L N 3.5-5.0 Chloride 106 mmol/L N 101-111 Co2 Carbon Dioxide 30 mmol/L N 22-32 Anion Gap 6 mmol/L N 2-11 Glucose 86 mg/dL N 70-100 Blood Urea Nitrogen 16 mg/dL N 6-24 Creatinine 0.72 mg/dL N 0.51-0.95 BUN/Creatinine Ratio 22.2 High 8-20 Calcium 9.5 mg/dL N 8.6-10.3 Total Protein 7.1 g/dL N 6.4-8.9 Albumin 3.9 g/dL N 3.2-5.2 Globulin 3.2 g/dL N 2-4 Albumin/Globulin Ratio 1.2 N 1-3 Total Bilirubin 0.90 mg/dL N 0.2-1.0 Alkaline Phosphatase 129 U/L High 34-104 Alt 23 U/L N 7-52 Ast 30 U/L N 13-39 Egfr Non- 79.4 >60 Egfr 96.1 >60 3 Alkaline Phos 04/16/2018 [facility] Alkaline 132 U/L Abnormal 35 - Isoenzymes [phone] Phosphatase 104 Alp Liver 1% 30.3 % 27.8-76.3 Alp Liver 1 40.0 IU/L 16.2-70.2 Alp Liver 2% 6.0 % 0.0-8.0 Alp Liver 2 7.9 IU/L Abnormal 0.0-5.8 Alp Bone % 35.5 % 19.1-67.7 Alp Bone 46.9 IU/L Abnormal 12.1-42.7 Alp Intestine % 28.2 % Abnormal 0.0-20.6 Alp Intestine 37.2 IU/L Abnormal 0.0-11.0 Alp Placental NotPresent 4 Ssa/SSB Abs Igg 04/16/2018 [facility] SS-A/Ro Antibody <0.2 U 5 [phone] SS-B/La Antibody <0.2 U 6 CBC Auto Diff 02/14/2018 [facility] White Blood 6.0 10^3/uL N 3.5-10.8 [phone] Count Red Blood Count 4.18 10^6/uL N 4.00-5.40 Hemoglobin 13.1 g/dL N 12.0-16.0 Hematocrit 39 % N 35-47 Mean Corpuscular Volume 93 fL N 80-97 Mean Corpuscular Hemoglobin 31 pg N 27-31 Mean Corpuscular HGB Conc 34 g/dL N 31-36 Red Cell Distribution Width 14 % N 10.5-15 Platelet Count 196 10^3/uL N 150-450 Mean Platelet Volume 10.0 fL N 7.4-10.4 Abs Neutrophils 2.7 10^3/uL N 1.5-7.7 Abs Lymphocytes 2.6 10^3/uL N 1.0-4.8 Abs Monocytes 0.6 10^3/uL N 0-0.8 Abs Eosinophils 0 10^3/uL N 0-0.6 Abs Basophils 0 10^3/uL N 0-0.2 Abs Nucleated RBC 0 10^3/uL Granulocyte % 45.2 % N 38-83 Lymphocyte % 44.0 % N 25-47 Monocyte % 9.7 % High 0-7 Eosinophil % 0.7 % N 0-6 Basophil % 0.4 % N 0-2 Nucleated Red Blood Cells % 0.1 Comp Metabolic Panel 02/14/2018 [facility] Sodium 139 mmol/L N 135-145 [phone] Potassium 3.9 mmol/L N 3.5-5.0 Chloride 106 mmol/L N 101-111 Co2 Carbon Dioxide 28 mmol/L N 22-32 Anion Gap 5 mmol/L N 2-11 Glucose 81 mg/dL N 70-100 Blood Urea Nitrogen 18 mg/dL N 6-24 Creatinine 0.78 mg/dL N 0.51-0.95 BUN/Creatinine Ratio 23.1 High 8-20 Calcium 9.2 mg/dL N 8.6-10.3 Total Protein 6.6 g/dL N 6.4-8.9 Albumin 3.8 g/dL N 3.2-5.2 Globulin 2.8 g/dL N 2-4 Albumin/Globulin Ratio 1.4 N 1-3 Total Bilirubin 0.60 mg/dL N 0.2-1.0 Alkaline Phosphatase 123 U/L High 34-104 Alt 23 U/L N 7-52 Ast 33 U/L N 13-39 Egfr Non- 72.4 >60 Egfr 87.6 >60 7 Statin 01/05/2018 [facility] Ast (Sgot) 31 U/L N 13 -39 8 [phone] Alt 24 U/L N 7-52 9 Lipid Profile 01/05/2018 [facility] Triglycerides 147 mg/dL 10 (Trig/Chol/HDL) [phone] Cholesterol 136 mg/dL 11 HDL Cholesterol 73.9 mg/dL 12 LDL Cholesterol 33 mg/dL 13 BUN/Creat/GFR 12/13/2017 [facility] Poc Blood Urea 25 mg/dL N 8-26 [phone] Nitrogen Poc Creatinine 0.9 mg/dL N 0.6-1.3 14 Poc BUN/Creatinine Ratio 27.8 High 8-20 Egfr Non- 61.4 >60 Egfr 74.3 >60 15 Laboratory test 09/25/2017 [employer] <pending> finding [address], [address] [place] [address] [phone] CBC Auto Diff 08/10/2017 [facility] White Blood 5.0 10^3/uL N 3.5-10 [phone] Count .8 Red Blood Count 4.45 10^6/uL N 4.0-5.4 Hemoglobin 13.7 g/dL N 12.0-16.0 Hematocrit 41 % N 35-47 Mean Corpuscular Volume 92 fL N 80-97 Mean Corpuscular Hemoglobin 31 pg N 27-31 Mean Corpuscular HGB Conc 34 g/dL N 31-36 Red Cell Distribution Width 14 % N 10.5-15 Platelet Count 217 10^3/uL N 150-450 Mean Platelet Volume 9.4 um3 N 7.4-10.4 Abs Neutrophils 2.1 10^3/uL N 1.5-7.7 Abs Lymphocytes 2.3 10^3/uL N 1.0-4.8 Abs Monocytes 0.5 10^3/uL N 0-0.8 Abs Eosinophils 0.1 10^3/uL N 0-0.6 Abs Basophils 0 10^3/uL N 0-0.2 Abs Nucleated RBC 0 10^3/uL Granulocyte % 43.0 % N 38-83 Lymphocyte % 45.2 % N 25-47 Monocyte % 9.4 % High 0-7 Eosinophil % 1.7 % N 0-6 Basophil % 0.7 % N 0-2 Nucleated Red Blood Cells % 0.3 Comp Metabolic Panel 08/10/2017 [facility] Sodium 141 mmol/L N 139-145 [phone] Potassium 3.9 mmol/L N 3.5-5.0 Chloride 105 mmol/L N 101-111 Co2 Carbon Dioxide 29 mmol/L N 22-32 Anion Gap 7 mmol/L N 2-11 Glucose 94 mg/dL N 70-100 Blood Urea Nitrogen 16 mg/dL N 6-24 Creatinine 0.73 mg/dL N 0.51-0.95 BUN/Creatinine Ratio 21.9 High 8-20 Calcium 9.4 mg/dL N 8.6-10.3 Total Protein 6.9 g/dL N 6.4-8.9 Albumin 3.8 g/dL N 3.2-5.2 Globulin 3.1 g/dL N 2-4 Albumin/Globulin Ratio 1.2 N 1-3 Total Bilirubin 1.30 mg/dL High 0.2-1.0 Alkaline Phosphatase 94 U/L N 34-104 Alt 16 U/L N 7-52 Ast 23 U/L N 13-39 Egfr Non- 78.4 >60 Egfr 100.8 >60 16 Tick-Borne Panel 08/10/2017 [facility] Babesia Negative Negative PCR Blood [phone] microti PCR Babesia ducani Negative Negative Babesia divergens/Mo-1 Negative Negative 17 Anaplasma phagocytophilum Negative Negative Ehrlichia chaffeensis Negative Negative Ehrlichia ewingii/canis Negative Negative Ehrlichia muris-like Negative Negative 18 B. miyamotoi PCR, B Negative Negative 19 Lyme Western 08/10/2017 [facility] Lyme Disease Negative Negative Blot [phone] IgG Ab WB Lyme Disease IgG Bands Present p66,p41,p39,p23 kDa Lyme Disease IgM Ab WB Negative Negative Lyme Disease IgM Bands Present p41 kDa Lyme Disease Interpretation See Comment 20 Urinalysis Profile 07/11/2017 [facility] Urine Color Yellow [phone] Urine Appearance Clear Urine Specific [place] 1.010 N 1.010-1.030 Urine pH 7.0 N 5-9 Urine Urobilinogen Negative Negative Urine Ketones Trace Abnormal Negative Urine Protein Negative Negative Urine Leukocytes Negative Negative Urine Blood 2+ Abnormal Negative Urine Nitrite Negative Negative Urine Bilirubin Negative Negative Urine Glucose Negative Negative Urine White Blood Cell Trace(0-5/hpf) Absent Urine Red Blood Cell 2+(6-10/hpf) Abnormal Absent Urine Bacteria Absent Absent Urine Squamous Epithelial Cell Present Abnormal Absent Urine Culture And 07/11/2017 [facility] Urine Culture SEE RESULT 21 Sensitivities [phone] BELOW CBC Auto Diff 07/11/2017 [facility] White Blood 8.4 10^3/uL N 3.5-6 [phone] Count 0.8 Red Blood Count 4.61 10^6/uL N 4.0-5.4 Hemoglobin 14.4 g/dL N 12.0-16.0 Hematocrit 42 % N 35-47 Mean Corpuscular Volume 92 fL N 80-97 Mean Corpuscular Hemoglobin 31 pg N 27-31 Mean Corpuscular HGB Conc 34 g/dL N 31-36 Red Cell Distribution Width 14 % N 10.5-15 Platelet Count 209 10^3/uL N 150-450 Mean Platelet Volume 9.4 um3 N 7.4-10.4 Abs Neutrophils 5.5 10^3/uL N 1.5-7.7 Abs Lymphocytes 2.1 10^3/uL N 1.0-4.8 Abs Monocytes 0.7 10^3/uL N 0-0.8 Abs Eosinophils 0 10^3/uL N 0-0.6 Abs Basophils 0.1 10^3/uL N 0-0.2 Abs Nucleated RBC 0 10^3/uL Granulocyte % 65.6 % N 38-83 Lymphocyte % 24.9 % Low 25-47 Monocyte % 8.5 % High 0-7 Eosinophil % 0.3 % N 0-6 Basophil % 0.7 % N 0-2 Nucleated Red Blood Cells % 0 Inr/Protime 07/11/2017 [facility] Inr 1.15 High 0.77-1.02 [phone] Laboratory test 07/11/2017 [facility] Lactic Acid 1.3 N 0.5-2.0 22 finding [phone] mmol/L Comp Metabolic 07/11/2017 [facility] Sodium 141 N 139-145 Panel [phone] mmol/L Potassium 3.8 mmol/L N 3.5-5.0 Chloride 106 mmol/L N 101-111 Co2 Carbon Dioxide 29 mmol/L N 22-32 Anion Gap 6 mmol/L N 2-11 Glucose 110 mg/dL High 70-100 Blood Urea Nitrogen 22 mg/dL N 6-24 Creatinine 0.67 mg/dL N 0.51-0.95 BUN/Creatinine Ratio 32.8 High 8-20 Calcium 9.7 mg/dL N 8.6-10.3 Total Protein 7.0 g/dL N 6.4-8.9 Albumin 3.9 g/dL N 3.2-5.2 Globulin 3.1 g/dL N 2-4 Albumin/Globulin Ratio 1.3 N 1-3 Total Bilirubin 0.90 mg/dL N 0.2-1.0 Alkaline Phosphatase 101 U/L N 34-104 Alt 18 U/L N 7-52 Ast 26 U/L N 13-39 Egfr Non- 86.5 >60 Egfr 111.3 >60 23 Laboratory test 07/11/2017 [facility] Troponin-I (TnI ) 0.01 ng/mL <0.04 finding [phone] Type & Screen 07/11/2017 [facility] Patient Blood O Positive [phone] Type Antibody Screen NEGATIVE Laboratory 07/06/2017 [facility] Surgical Pathology SEE RESULT 24 test finding [phone] BELOW CMV Igg/Igm 06/23/2017 [facility] Cytomegalovirus Negative Negative 25 [phone] IgG Antibody Cytomegalovirus IgM Antibody Negative Negative Анна Albright 06/23/2017 [facility] Ebv Capsid Positive Negative Comprehensive [phone] Ag IgG Ab Ebv Capsid Ag IgM Ab Negative Negative Анна-Albright Nuclear Antigen Positive Negative Анна-Albright Virus Interp See Comment 26 Laboratory test 06/23/2017 [facility] Magnesium 2.2 mg/dL N 1.9-2.7 27 finding [phone] Tick-Borne Panel 06/19/2017 [facility] Babesia Negative Negative PCR Blood [phone] microti PCR Babesia ducani Negative Negative Babesia divergens/Mo-1 Negative Negative 28 Anaplasma phagocytophilum Negative Negative Ehrlichia chaffeensis Negative Negative Ehrlichia ewingii/canis Negative Negative Ehrlichia muris-like Negative Negative 29 B. miyamotoi PCR, B Negative Negative 30 Liver Function 06/19/2017 [facility] Total Protein 7.7 g/dL N 6.4-8.9 Panel [phone] Albumin 4.3 g/dL N 3.2-5.2 Globulin 3.4 g/dL N 2-4 Albumin/Globulin Ratio 1.3 N 1-3 Total Bilirubin 1.50 mg/dL High 0.2-1.0 Direct Bilirubin 0.20 mg/dL High 0.03-0.18 Indirect Bilirubin 1.3 mg/dL High 0.3-1.0 Alkaline Phosphatase 221 U/L High 34-104 Alt 61 U/L High 7-52 Ast 53 U/L High 13-39 Laboratory 06/19/2017 [facility] Hepatitis B Nonreactive Nonreactive test finding [phone] Surface Ag Hepatitis B 06/19/2017 [facility] Hepatitis B Nonreactive Nonreactive Finesse AB Titer [phone] Surface AB Hep B Surf AB Level < 3.10 mIU/mL <12 31 Laboratory 06/19/2017 [facility] Hepatitis C Nonreactive Nonreactive test finding [phone] Antibody Hepatitis A Igg Antibody, Serum Negative 32 Hepatitis B Core AB Total Negative Negative 33 CBC Auto Diff 06/16/2017 [facility] White Blood 5.4 10^3/uL N 3.5-10.8 [phone] Count Red Blood Count 4.77 10^6/uL N 4.0-5.4 Hemoglobin 15.0 g/dL N 12.0-16.0 Hematocrit 45 % N 35-47 Mean Corpuscular Volume 95 fL N 80-97 Mean Corpuscular Hemoglobin 32 pg High 27-31 Mean Corpuscular HGB Conc 33 g/dL N 31-36 Red Cell Distribution Width 14 % N 10.5-15 Platelet Count 221 10^3/uL N 150-450 Mean Platelet Volume 10 um3 N 7.4-10.4 Comp Metabolic Panel 06/16/2017 [facility] Sodium 142 mmol/L N 133-145 [phone] Potassium 4.9 mmol/L N 3.5-5.0 Chloride 104 mmol/L N 101-111 Co2 Carbon Dioxide 31 mmol/L N 22-32 Anion Gap 7 mmol/L N 2-11 Glucose 91 mg/dL N 70-100 Blood Urea Nitrogen 12 mg/dL N 6-24 Creatinine 0.69 mg/dL N 0.51-0.95 BUN/Creatinine Ratio 17.4 N 8-20 Calcium 10.0 mg/dL N 8.6-10.3 Total Protein 7.2 g/dL N 6.4-8.9 Albumin 4.2 g/dL N 3.2-5.2 Globulin 3.0 g/dL N 2-4 Albumin/Globulin Ratio 1.4 N 1-3 Total Bilirubin 1.10 mg/dL High 0.2-1.0 Alkaline Phosphatase 201 U/L High 34-104 Alt 50 U/L N 7-52 Ast 52 U/L High 13-39 Egfr Non- 83.6 >60 Egfr 107.6 >60 34 Laboratory test 06/16/2017 [facility] Lyme Disease Positive Negative 35 finding [phone] Serology Manual 06/16/2017 [facility] Immature 1 % N 0-9 Differential [phone] Granulocytes Neutrophil % 54 % N 38-83 Band % 1 % N 0-8 Lymphocytes % 41 % N 25-47 Monocytes % 4 % N 0-7 Eosinophils % 0 % N 0-6 Basophil % 0 % N 0-2 Abs Neutrophils 2.9 10^3/uL N 1.5-7.7 Abs Lymphocytes 2.2 10^3/uL N 1.0-4.8 Abs Monocytes 0.2 10^3/uL N 0-0.8 Abs Eosinophils 0 10^3/uL N 0-0.6 Abs Basophils 0 10^3/uL N 0-0.2 RBC Morphology Normal Normal Lyme Western 06/16/2017 [facility] Lyme Disease Positive Abnormal Negative Blot [phone] IgG Ab WB Lyme Disease IgG Bands Present See Comment kDa 36 Lyme Disease IgM Ab WB Negative Negative Lyme Disease IgM Bands Present p41, kDa Lyme Disease Interpretation See Comment 37 Basic Metabolic 05/30/2017 [facility] Sodium 139 mmol /L N 133-145 Panel [phone] Potassium 4.3 mmol/L N 3.5-5.0 Chloride 104 mmol/L N 101-111 Co2 Carbon Dioxide 30 mmol/L N 22-32 Anion Gap 5 mmol/L N 2-11 Glucose 93 mg/dL N 70-100 Blood Urea Nitrogen 13 mg/dL N 6-24 Creatinine 0.77 mg/dL N 0.51-0.95 BUN/Creatinine Ratio 16.9 N 8-20 Calcium 9.7 mg/dL N 8.6-10.3 Egfr Non- 73.7 >60 Egfr 94.8 >60 38 Basic Metabolic 09/22/2015 [facility] Sodium 140 mmol /L N 133-145 Panel [phone] Potassium 4.1 mmol/L N 3.5-5.0 Chloride 104 mmol/L N 101-111 Co2 Carbon Dioxide 29 mmol/L N 22-32 Anion Gap 7 mmol/L N 2-11 Glucose 88 mg/dL N 70-100 Blood Urea Nitrogen 14 mg/dL N 6-24 Creatinine 0.72 mg/dL N 0.51-0.95 BUN/Creatinine Ratio 19.4 N 8-20 Calcium 9.9 mg/dL N 8.6-10.3 Egfr Non- 79.9 N >60 Egfr 102.7 N >60 39 Statin 09/22/2015 [facility] Ast (Sgot) 22 U/L N 13 -39 40 [phone] Alt (SGPT) 14 U/L N 7-52 41 Lipid Profile 09/22/2015 [facility] Triglycerides 103 mg/dL N 42 (Trig/Chol/HDL) [phone] Cholesterol 192 mg/dL N 43 HDL Cholesterol 61.6 mg/dL N 44 LDL Cholesterol 110 mg/dL N 45 Laboratory test 09/22/2015 [facility] TSH (Thyroid 2.95 ?IU/mL N 0.34-5.60 46 finding [phone] Stim Horm) Laboratory test 09/04/2015 [facility] Wound SEE RESULT 47 finding [phone] Culture/Sensi BELOW Laboratory test 11/04/2013 [facility] Surgical RUN DATE: 48 finding [phone] Pathology <SEE NOTE> Laboratory test 10/17/2013 [facility] Cytology RUN DATE: 49 finding [phone] <SEE NOTE> Urine DIP 10/17/2013 In House Lab Specific 1.020 1.01-1.02 [phone] [place] Urine pH 5 5-6 Leukocytes + Neg Urine Nitrites NEG Neg Total Protein, Urine NEG Neg Urine Glucose NORM Norm Urine Ketones NEG Neg Urobilinogen NORM Norm Urine Bilirubin NEG Neg Urine Blood 250 High Neg HPV High 10/17/2013 [facility] Human Papillomavirus See Comment N 50 Risk [phone] Source HPV High Risk Type 16, PCR Negative N Negative HPV High Risk Type 18, PCR Negative N Negative HPV Other Risk types Negative N Negative 51 Laboratory test 04/30/2013 [facility] Hemoglobin A1c 4.7 % Less than 52 finding [phone] 6.0 TSH (Thyroid Stimulating Horm) 2.84 miu/mL 0.34-5.60 Lipid Profile 04/30/2013 [facility] Triglycerides 79 mg/dL 40-200 (Trig/Chol/HDL) [phone] Cholesterol 160 mg/dL Less than 200 HDL Cholesterol 58 mg/dL 40-60 53 Cholesterol/HDL Ratio 2.8 Average 1-4.44 LDL Cholesterol 86.2 Less Than 100 54 Basic Metabolic 04/30/2013 [facility] Sodium 138 mmol /L 133-145 Panel [phone] Potassium 3.9 mmol/L 3.5-5.0 Chloride 103 mmol/L 101-111 Co2 Carbon Dioxide 28.0 mmol/L 22-32 Anion Gap 7.0 mmol/L 2-11 Glucose 80 mg/dL 70-100 Blood Urea Nitrogen 10 mg/dL 6-24 Creatinine 0.70 mg/dL 0.50-1.40 BUN/Creatinine Ratio 14.3 8-20 Calcium 9.5 mg/dL 8.1-9.9 Egfr Non- 83.2 >60 Egfr 107.0 >60 55 1 Because ethnic data is not always readily available, this report includes an eGFR for both -Americans and non- Americans. The National Kidney Disease Education Program (NKDEP) does not endorse the use of the MDRD equation for patients that are not between the ages of 18 and 70, are , have extremes of body size, muscle mass, or nutritional status, or are non- or non-. According to the National Kidney Foundation, irrespective of diagnosis, the stage of the disease is based on the level of kidney function: Stage Description GFR(mL/min/1.73 m(2)) 1 Kidney damage with normal or decreased GFR 90 2 Kidney damage with mild decrease in GFR 60-89 3 Moderate decrease in GFR 30-59 4 Severe decrease in GFR 15-29 5 Kidney failure <15 (or dialysis) 2 ADDITIONAL INFORMATION Normal values were determined on platelet poor EDTA plasma from individuals fasting no longer than overnight. A significant amount of circulating SECONDARY EDUCATION PROFESSOR is associated with platelets. Therefore, various conditions affecting platelets may also affect SECONDARY EDUCATION PROFESSOR levels. Platelet rich samples have been shown to have SECONDARY EDUCATION PROFESSOR levels on the order of 10 times the value of platelet poor samples. SECONDARY EDUCATION PROFESSOR levels obtained in the process of a water deprivation test may be difficult to interpret because of the many nonstandardized variables in this test. Expert consultation is recommended in these circumstances. This test was developed and its performance characteristics determined by [facility] in a manner consistent with CLIA requirements. This test has not been cleared or approved by the U.S. Food and Drug Administration. Test Performed by: [facility] [address] [place] [address] 3 Because ethnic data is not always readily available, this report includes an eGFR for both -Americans and non- Americans. The National Kidney Disease Education Program (NKDEP) does not endorse the use of the MDRD equation for patients that are not between the ages of 18 and 70, are , have extremes of body size, muscle mass, or nutritional status, or are non- or non-. According to the National Kidney Foundation, irrespective of diagnosis, the stage of the disease is based on the level of kidney function: Stage Description GFR(mL/min/1.73 m(2)) 1 Kidney damage with normal or decreased GFR 90 2 Kidney damage with mild decrease in GFR 60-89 3 Moderate decrease in GFR 30-59 4 Severe decrease in GFR 15-29 5 Kidney failure <15 (or dialysis) 4 REFERENCE VALUE Not present Test Performed by: [facility] [address], [place] [address] 5 REFERENCE VALUE <1.0 (Negative) 6 REFERENCE VALUE <1.0 (Negative) Test Performed by: [facility] [address] , [place] [address] 7 Because ethnic data is not always readily available, this report includes an eGFR for both -Americans and non- Americans. The National Kidney Disease Education Program (NKDEP) does not endorse the use of the MDRD equation for patients that are not between the ages of 18 and 70, are , have extremes of body size, muscle mass, or nutritional status, or are non- or non-. According to the National Kidney Foundation, irrespective of diagnosis, the stage of the disease is based on the level of kidney function: Stage Description GFR(mL/min/1.73 m(2)) 1 Kidney damage with normal or decreased GFR 90 2 Kidney damage with mild decrease in GFR 60-89 3 Moderate decrease in GFR 30-59 4 Severe decrease in GFR 15-29 5 Kidney failure <15 (or dialysis) 8 [id number] Desirable: <150 Borderline High: 150-199 High: 200-499 Very High: >500 11 Desirable: <200 Borderline High: 200-239 High: >239 12 Low: <40 Desirable: 40-60 High: >60 13 Desirable: <100 Near Optimal: 100-129 Borderline High: 130-159 High: 160-189 Very High: >189 14 Addiction Psychiatrist: [id number] Because ethnic data is not always readily available, this report includes an eGFR for both -Americans and non- Americans. The National Kidney Disease Education Program (NKDEP) does not endorse the use of the MDRD equation for patients that are not between the ages of 18 and 70, are , have extremes of body size, muscle mass, or nutritional status, or are non- or non-. According to the National Kidney Foundation, irrespective of diagnosis, the stage of the disease is based on the level of kidney function: Stage Description GFR(mL/min/1.73 m(2)) 1 Kidney damage with normal or decreased GFR 90 2 Kidney damage with mild decrease in GFR 60-89 3 Moderate decrease in GFR 30-59 4 Severe decrease in GFR 15-29 5 Kidney failure <15 (or dialysis) 16 Because ethnic data is not always readily available, this report includes an eGFR for both -Americans and non- Americans. The National Kidney Disease Education Program (NKDEP) does not endorse the use of the MDRD equation for patients that are not between the ages of 18 and 70, are , have extremes of body size, muscle mass, or nutritional status, or are non- or non-. According to the National Kidney Foundation, irrespective of diagnosis, the stage of the disease is based on the level of kidney function: Stage Description GFR(mL/min/1.73 m(2)) 1 Kidney damage with normal or decreased GFR 90 2 Kidney damage with mild decrease in GFR 60-89 3 Moderate decrease in GFR 30-59 4 Severe decrease in GFR 15-29 5 Kidney failure <15 (or dialysis) 17 ADDITIONAL INFORMATION This test was developed and its performance characteristics determined by [facility] in a manner consistent with CLIA requirements. This test has not been cleared or approved by the U.S. Food and Drug Administration. 18 ADDITIONAL INFORMATION This test was developed and its performance characteristics determined by [facility] in a manner consistent with CLIA requirements. This test has not been cleared or approved by the U.S. Food and Drug Administration. 19 ADDITIONAL INFORMATION This test was developed and its performance characteristics determined by [facility] in a manner consistent with CLIA requirements. This test has not been cleared or approved by the U.S. Food and Drug Administration. Test Performed by: [facility] [address] [place] [address] 20 Specific serologic response to B. burgdorferi infection is not detected, but cannot rule out early infection during which low or undetectable antibody levels to B. burgdorferi may be present. If clinically indicated, a new serum specimen should be submitted in 7-14 days. ADDITIONAL INFORMATION CDC criteria require >=5 bands for IgG or >=2 bands for IgM for the Immunoblot to be considered positive. Bands (e.g.,p41) may be detected in patients without Lyme disease, and patterns not meeting the CDC criteria should be interpreted with caution. Immunoblot should be ordered only on specimens that are positive or equivocal by a FDA-licensed Lyme disease antibody screening test (e.g., EIA). Test Performed by: [facility] [address] [place] [address] 21 SEE RESULT BELOW Name: HECTOR AMOR : [address]: Sridhar Nava MD Acct: [id number] Unit: [id number] AGE: 71 Location: [facility] Re07/11/17 Dis: 07/12/17 SEX: F Status: DIS IN SPEC: [id number] SAUL: 07/11/[address] [facility] [address]: Kyle Price MD REQ: [id number] RECD: 07/11/17 STATUS: YUDY JASSO DR: Richard Fontanez [employer] _ SOURCE: URINE SPDESC: ORDERED: Urine Culture Procedure Result Reported Site Urine Culture Final 07/13/17923 ML No Growth (<1,000 CFU/mL) * ML - Main Lab . END OF REPORT DEPARTMENT OF PATHOLOGY, [address] [place] [address] Melvin Cardenas M.D. Director [facility] # [id number] [facility] Severe Sepsis and Septic Shock Management Bundle Measure requires all lactic acids initially measuring >2.0 mmol/L be repeated. 23 Because ethnic data is not always readily available, this report includes an eGFR for both -Americans and non- Americans. The National Kidney Disease Education Program (NKDEP) does not endorse the use of the MDRD equation for patients that are not between the ages of 18 and 70, are , have extremes of body size, muscle mass, or nutritional status, or are non- or non-. According to the National Kidney Foundation, irrespective of diagnosis, the stage of the disease is based on the level of kidney function: Stage Description GFR(mL/min/1.73 m(2)) 1 Kidney damage with normal or decreased GFR 90 2 Kidney damage with mild decrease in GFR 60-89 3 Moderate decrease in GFR 30-59 4 Severe decrease in GFR 15-29 5 Kidney failure <15 (or dialysis) 24 SEE RESULT BELOW Name: ENGLISHHECTOR J : [address]: Richard Fontanez NP Acct: [id number] Unit: [id number] AGE: 71 Location: [facility] Re07/06/17 SEX: F Status: REG REF SPEC: [id number] SAUL: 07/06/17-[address]: Richard Fontanez NP REQ: [id number] RECD: 07/06/17 STATUS: SOUT _ ORDERED: LEVEL 4, IMMUNO-FIRST, IMMUNO-ADDL COMMENTS: [id number] FINAL DIAGNOSIS Skin, left thigh, excision: -- Seborrheic keratosis. Comment: Immunohistochemical stains for CEA and ER are performed on block 1 to rule out a small focus of Paget's disease. These stains are negative. Dr. Gill has reviewed this case and concurs. CLINICAL HISTORY No history given GROSS DESCRIPTION The specimen is received in formalin labeled, Left Skin Thigh, and consists of a 2.3 x 1.1 chavez wrinkled to granular unoriented skin ellipse excised to a depth of 0.4 cm with a central 1.1 x 0.8 x 0.2 cm chavez-pink granular to friable lesion. The specimen is inked, serially sectioned and entirely submitted in cassettes A through C to include ellipse ends in cassette A. Signed (signature on file) Melvin Cardenas MD [id number] END OF REPORT DEPARTMENT OF PATHOLOGY, [address] [place] [address] Melvin Cardenas M.D. Director [facility] # [id number] 25 Test Performed by: [address] [id number] 26 RESULT: Results suggest past infection. ADDITIONAL INFORMATION In most populations, at least 90% of the adult population will have been infected with EBV sometime in the past and therefore, will be positive for anti-VCA/IgG and anti- EBNA. Antibodies to EBNA develop 6-8 weeks after primary infection and remain present for life. Presence of VCA/ IgM antibodies indicates recent primary infection with EBV. Test Performed by: [facility] [employer] [address] [place] [address] 27 [id number] ADDITIONAL INFORMATION This test was developed and its performance characteristics determined by [facility] in a manner consistent with CLIA requirements. This test has not been cleared or approved by the U.S. Food and Drug Administration. 29 ADDITIONAL INFORMATION This test was developed and its performance characteristics determined by [facility] in a manner consistent with CLIA requirements. This test has not been cleared or approved by the U.S. Food and Drug Administration. 30 ADDITIONAL INFORMATION This test was developed and its performance characteristics determined by [facility] in a manner consistent with CLIA requirements. This test has not been cleared or approved by the U.S. Food and Drug Administration. Test Performed by: [facility] - [address] [address] 31 This assay does not differentiate between reactivity due to a vaccine-induced immune response or an immune response induced by infection with HBV. 32 Result indicates no past exposure or immunity to hepatitis A infection. REFERENCE VALUE Unvaccinated: Negative Vaccinated: Positive Test Performed by: [facility] [employer] [address] [place] [id number] 33 Test Performed by: [facility] [place] [address] 34 Because ethnic data is not always readily available, this report includes an eGFR for both -Americans and non- Americans. The National Kidney Disease Education Program (NKDEP) does not endorse the use of the MDRD equation for patients that are not between the ages of 18 and 70, are , have extremes of body size, muscle mass, or nutritional status, or are non- or non-. According to the National Kidney Foundation, irrespective of diagnosis, the stage of the disease is based on the level of kidney function: Stage Description GFR(mL/min/1.73 m(2)) 1 Kidney damage with normal or decreased GFR 90 2 Kidney damage with mild decrease in GFR 60-89 3 Moderate decrease in GFR 30-59 4 Severe decrease in GFR 15-29 5 Kidney failure <15 (or dialysis) 35 Not diagnostic. Supplemental testing ordered by reflex. 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 ADDITIONAL INFORMATION CDC criteria require >=5 bands for IgG or >=2 bands for IgM for the Immunoblot to be considered positive. Bands (e.g.,p41) may be detected in patients without Lyme disease, and patterns not meeting the CDC criteria should be interpreted with caution. Immunoblot should be ordered only on specimens that are positive or equivocal by a FDA-licensed Lyme disease antibody screening test (e.g., EIA). Test Performed by: [facility] [employer] [address] [place] [address] 38 Because ethnic data is not always readily available, this report includes an eGFR for both -Americans and non- Americans. The National Kidney Disease Education Program (NKDEP) does not endorse the use of the MDRD equation for patients that are not between the ages of 18 and 70, are , have extremes of body size, muscle mass, or nutritional status, or are non- or non-. According to the National Kidney Foundation, irrespective of diagnosis, the stage of the disease is based on the level of kidney function: Stage Description GFR(mL/min/1.73 m(2)) 1 Kidney damage with normal or decreased GFR 90 2 Kidney damage with mild decrease in GFR 60-89 3 Moderate decrease in GFR 30-59 4 Severe decrease in GFR 15-29 5 Kidney failure <15 (or dialysis) 39 Because ethnic data is not always readily available, this report includes an eGFR for both -Americans and non- Americans. The National Kidney Disease Education Program (NKDEP) does not endorse the use of the MDRD equation for patients that are not between the ages of 18 and 70, are , have extremes of body size, muscle mass, or nutritional status, or are non- or non-. According to the National Kidney Foundation, irrespective of diagnosis, the stage of the disease is based on the level of kidney function: Stage Description GFR(mL/min/1.73 m(2)) 1 Kidney damage with normal or decreased GFR 90 2 Kidney damage with mild decrease in GFR 60-89 3 Moderate decrease in GFR 30-59 4 Severe decrease in GFR 15-29 5 Kidney failure <15 (or dialysis) 40 [id number] 42 Desirable <150 Borderline high 150-199 High 200-499 Very High >500 43 Desirable <200 Borderline high 200-239 High >239 44 Low <40 Desirable: 40-60 High: >60 45 Desirable: <100 mg/dL Near Optimal: 100-129 mg/dL Borderline High: 130-159 mg/dL High: 160-189 mg/dL Very High: >189 mg/dL 46 [id number] 47 SEE RESULT BELOW Name: HECTOR AMOR : [address]: Willis Johnson MD Acct: [id number] Unit: [id number] AGE: 69 Location: [facility] Re09/04/15 SEX: F Status: REG REF SPEC: [id number] SAUL: 09/04/15-[address]: Willis Johnson MD REQ: [id number] RECD: 09/04/15 STATUS: COMP _ SOURCE: FOOT,RIGHT SPDESC: ORDERED: Culture Stain COMMENTS: [id number] Specimen Description right heal Procedure Result Reported Site Wound/Misc Gram Stain Final 09/05/15- 725 ML 1+ Epithelial Cells 2+ Neutrophils 2+ Gram Positive Cocci Wound/Misc Culture Final 09/06/15- 1149 ML Organism 1 NORMAL FARZANEH Quantity 2+ * ML - MAIN LAB ([facility]) . END OF REPORT * ML=Testing performed at Main Lab DEPARTMENT OF PATHOLOGY, [address] [place] [id number] Melvin Cardenas M.D. Director JONATHAN # [id number] 48 RUN DATE: 11/06/13 [facility] LAB LIVE PAGE 1 RUN TIME: 17[address] [place], [place] [address] Specimen Inquiry Name: HECTOR AMOR : [address]: Richard Fontanez NP Acct: [id number] Unit: [id number] AGE: 68 Location: [facility] Re11/04/13 SEX: F Status: REG REF SPEC: [id number] SAUL: 11/04/13-[address] [facility] [address]: Richard Fontanez NP REQ: [id number] RECD: 11/04/13 STATUS: SOUT _ ORDERED: LEVEL IV FINAL DIAGNOSIS Skin, anterior chest wall, biopsy: Hemangioma. CLINICAL HISTORY Present for close to 10 years, thought it started as a skin tag, no pain, has slowly grown larger PRE-OPERATIVE DIAGNOSIS ? basal cell carcinoma GROSS DESCRIPTION The specimen is received in formalin labeled Hector , No Source Identified with a requisition labeled Anterior Chest Wall and consists of a 0.5 cm. chavez-white circular skin punch excised to a depth of 0.3 cm. There is a central 0.4 x 0.2 x 0.2 cm. chavez wrinkled nodule. The specimen is bisected and submitted entirely in one cassette. Signed (signature on file) Vivienne Gill MD 1712 END OF REPORT * ML=Testing performed at Main Lab DEPARTMENT OF PATHOLOGY, [facility] [place], [place] [address] Melvin Cardenas M.D. Director [facility] # [id number] 49 RUN DATE: 10/18/13 [facility] LAB LIVE PAGE 1 RUN TIME: 1108 [facility] [employer] [place], [place] [address] Specimen Inquiry Name: HECTOR AMOR : [address]: Richard Fontanez NP Acct: [id number] Unit: [id number] AGE: 68 Location: [facility] Re10/17/13 SEX: F Status: REG REF SPEC: [id number] SAUL: 10/17/13-[address] [facility] [address]: Richard Fontnaez [employer] H[employer]ER REQ: [id number] RECD: 10/17/13 STATUS: SOUT _ ORDERED: IMAGE ANALYSIS, HPV/Thin Prep FINAL DIAGNOSIS Negative for Intraepithelial lesion or Malignancy COMMENTS: Specimen sent to [facility] in [place], [place] on 10/18/13 by JUAN at 1059. Results will be reported separately. A. Ectocervical/Endocervical Specimen Adequacy: Satisfactory of evaluation Transformation zone component identified Patient Information: HPV: High risk HPV DNA testing regardless of pap results. Actual Specimen Date: 10/17/13 Post Menopausal?: Y Other Pertinent History: Prior Unknown Signed (signature on file) THALIA Melissa (ASCP) 10/18 1108 This Pap test was evaluated with the assistance of the [employer] Test Imaging System. Due to cytologic findings at the public welfare director microscope, comprehensive manual rescreening by a Line Palletizer may be required. The Pap Smear is a screening test designed to aid in the detection of premalignant and malignant conditions of the uterine cervix. It is not a diagnostic procedure and should not be used as the sole means of detecting cervical cancer. Both false- positive and false- negative reports do occur. Depending on your risk status, a Pap smear shoudl be obtained and evaluated every 1-3 years. END OF REPORT * ML=Testing performed at Main Lab DEPARTMENT OF PATHOLOGY, [address] [place] [address] Melvin Cardenas M.D. Director [facility] # [id number] 50 RESULT: Ectocervical/Endocervical 51 The following Other High Risk HPV types were not detected: 31, 33, 35, 39, 45, 51, 52, 56, 58, 59, 66, and 68 Test Performed by: [address] [address] Media Producer: Kiko Rizzo III, M.D. 52 Therapeutic target for the treatment of diabetes Mellitus patients is <7% HBA1C, and in selective patients <6.0%.Please refer to [place] Diabetes Association Diabetic care guidelines for further information. 53 HDL Interpretation: Undesirable: High Risk: Less than 40 mg/dL Desirable: Low Risk: Greater than 60 mg/dL 54 LDL Interpretation: Low Risk Optimal Level: LDL Less than 100 mg/dL Near or Above Optimal: LDL 100-129 mg/dL Borderline High Risk: LDL 130-159 mg/dL High Risk: LDL 160-189 mg/dL Very High Risk: LDL Greater than 189 mg/dL 55 Because ethnic data is not always readily available, this report includes an eGFR for both -Americans and non- Americans. The National Kidney Disease Education Program (NKDEP) does not endorse the use of the MDRD equation for patients that are not between the ages of 18 and 70, are , have extremes of body size, muscle mass, or nutritional status, or are non- or non-. According to the National Kidney Foundation, irrespective of diagnosis, the stage of the disease is based on the level of kidney function: Stage Description GFR(mL/min/1.73 m(2)) 1 Kidney damage with normal or decreased GFR 90 2 Kidney damage with mild decrease in GFR 60-89 3 Moderate decrease in GFR 30-59 4 Severe decrease in GFR 15-29 5 Kidney failure <15 (or dialysis) Procedures Date Code Description Status 06/05/2018 98829 EKG, at Least 12 Leads w/Interpretation and Report Completed 07/06/2017 84940 Excision Lesion,Trunk,Arm 2-3 CM Completed 11/04/2013 25454 Excision Of Lesion (Trunk,Arm,Leg) .6 To 1 CM. Completed 04/30/2013 43737 EKG, at Least 12 Leads w/Interpretation and Report Completed 04/16/2013 76474 EKG, at Least 12 Leads w/Interpretation and Report Completed Encounters Type Date Location Provider Dx Diagnosis Office Visit 08/28/2018 Main Office Stevennti Vi. 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 Storm, I10 Essential (primary) [employer] hypertension R60.9 Edema, unspecified S90.852A Superficial foreign body, left foot, initial encounter Office Visit 06/26/2018 10:45a Main Office Shawnti R. Storm, R60.9 Edema, unspecified [employer]-C I10 Essential (primary) hypertension Office Visit 06/05/2018 10:30a Main Office Shawnti R. Storm, R60.9 Edema, unspecified [employer]-C I10 Essential (primary) hypertension Office Visit 01/05/2018 4:15p Main Office Shawnti R. I10 Essential ( primary) Storm, [employer] hypertension Office Visit 11/09/2017 9:45a Main Office Shawnti R. I10 Essential ( primary) Storm, [employer] hypertension Office Visit 09/25/2017 1:30p Main Office Shawnti R. Z00.00 Encntr for general Storm, [employer] adult medical exam w/o abnormal findings A69.20 Lyme disease, unspecified Z12.31 Encntr screen mammogram for malignant neoplasm of breast Office Visit 09/21/2017 11:30a Main Office Shawnti R. Storm, I10 Essential (primary) [employer] hypertension A69.20 Lyme disease, unspecified Office Visit 08/21/2017 10:30a Main Office Ricowntсергей RWilliam Fontanez, R41.3 Other amnesia [employer]-C S50.861A Insect bite (nonvenomous) of right forearm, init encntr I48.91 Unspecified atrial fibrillation Office Visit 08/16/2017 10:30a Main Office Willis Johnson, H53.10 Unspecified MD subjective visual disturbances R41.3 Other amnesia Office Visit 08/10/2017 10:15a Main Office Cecile R53.81 Other malaise Shortle, [employer] Office Visit 08/07/2017 11:15a Main Office Cecile S50.861A Insect bite Shortle, SHE[employer]OCK HANGER (nonvenomous) of right forearm, init encntr Office Visit 06/23/2017 2:30p Main Office Cecile R21 Rash and other Shortle, [employer]ER nonspecific skin eruption R20.2 Paresthesia of skin Office Visit 06/19/2017 9:30a Main Office Yamilet Camille, R20.2 Paresthesia of skin M.D., R.D. S50.861A Insect bite (nonvenomous) of right forearm, init encntr R94.5 Abnormal results of liver function studies Office Visit 06/16/2017 9:45a Main Office Cecile Gutierrez, R20.2 Paresthesia of skin [employer] I10 Essential (primary) hypertension Office Visit 01/30/2017 10:15a Main Office Shawnti R. Huseyin, I10 Essential (primary) [employer] hypertension Office Visit 01/13/2017 11:30a Main Office Ricownti R. Huseyin, I10 Essential (primary) [employer]-C hypertension Z12.31 Encntr screen mammogram for malignant neoplasm of breast Office Visit 12/23/2016 11:15a Main Office Shawnti R. Storm, I10 Essential (primary) [employer]-C hypertension I48.91 Unspecified atrial fibrillation Office Visit 12/02/2016 3:45p Main Office Shawnti R. Storm, I10 Essential (primary) [employer]-C hypertension I48.91 Unspecified atrial fibrillation Office Visit 04/14/2016 3:00p Main Office Shawnti R. Storm, I10 Essential (primary) [employer]-C hypertension I48.0 Paroxysmal atrial fibrillation Office Visit 03/01/2016 2:45p Main Office Shawnti R. Storm, I10 Essential (primary) [employer]-C hypertension I48.0 Paroxysmal atrial fibrillation Office Visit 02/09/2016 2:45p Main Office Shawnti R. Storm, I10 Essential (primary) [employer]C hypertension Office Visit 01/19/2016 3:00p Main Office Shawnti R. Storm, I10 Essential (primary) [employer]-C hypertension Office Visit 11/27/2015 3:00p Main Office Shawnti R. Storm, I10 Essential (primary) [employer]C hypertension S50.861A Insect bite (nonvenomous) of right forearm, init encntr Office Visit 09/22/2015 10:45a Main Office Richard Fontanez, I10 Essential (primary) [employer]-C hypertension Office Visit 09/08/2015 9:30a Main Office Richard Fontanez, I10 Essential (primary) [employer]C hypertension M41.9 Scoliosis, unspecified Office Visit 09/04/2015 11:00a Main Office Willis Johnson, S90.851A Superficial MD foreign body, right foot, initial encounter B35.3 Tinea pedis Office Visit 08/03/2015 2:30p Main Office Richard Jose J11.89 Influenza due to Storm, [employer] unidentified influenza virus w oth manifest Office Visit 04/06/2015 3:00p Main Office Bianca S80.929A Unsp superficial Davina, injury of unsp [employer] lower leg, init encntr Office Visit 05/13/2014 10:45a Main Office Ricownti R. 401.9 Hypertension Unspec Storm, [employer]C 788.39 Incontinence Urinary Other Office Visit 10/17/2013 2:00p Main Office Shawnti R. V70.0 Examination General Storm, [employer]C Medical Routine [facility] 401.9 Hypertension Unspec 782.9 Skin & Integumentary Tissue Other Symptoms V06.1 Cimfiikrpr-Obrhide-Zpycrsod Combined (DTaP) Office Visit 07/18/2013 2:30p Main Office Shawnti R. 401.9 Hypertension Unspec Storm, DIRECT[employer]-C Office Visit 06/27/2013 10:00a Main Office Shawnti R. 401.9 Hypertension Unspec Storm, DIRECT[employer]-C Office Visit 05/30/2013 12:00p Main Office Shawnti R. 401.9 Hypertension Unspec Storm, [employer]C Office Visit 04/30/2013 10:45a Main Office Shawnti R. 401.9 Hypertension Unspec Storm, [employer]C 427.31 Atrial Fibrillation 300.02 Anxiety Disorder Generalized Office Visit 04/16/2013 2:15p Main Office Ricownti R. 401.9 Hypertension Unspec Storm, [employer]C 427.31 Atrial Fibrillation Plan of Treatment Future Appointment(s):09/28/2018 3:00 pm - Richard Fontanez, DIRECTOR SPECIAL EDUCATION-C at Main Bpuxht9309/07/2018 - Richard Fontanez, ANITRA-CS76.111A Strain of right quadriceps muscle, fascia and tendon, initiaNew Medication:Diclofenac Sodium 1 % - apply 4gms of gel to right knee 4 times daily if needed for painNew Therapy:Physical Therapy-Evaluate And TreatComments:encourage ROM, ice/heat, topical NSAID, PT
--- OUTSIDE RECORDS SUMMARY | 2018-09-30 13:10 | XMS REPORT | Continuity of Care Document ---
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 09/28/2018 25mg Tablets day [facility], [facility]- Diclofenac Sodium apply 4gms of gel 100gm S76.111A [facility] R. 09/07/2018 1% Gel to right knee 4 [facility], [facility]-C times daily if needed for pain Verapamil HCL ER 1 by mouth daily 90caps I10 [facility] R. 09/06/2018 120mg Caps ER for blood [facility] 24HR pressure Hydrochlorothiazide 1 by mouth every 30tabs R60.9 [facility] R. 06/26/2018 25mg day [facility], [facility] Tablets Atorvastatin Calcium 1 by mouth every 90tabs I10 [facility] R. 01/05/2018 20mg day [facility] Tablets Atenolol Take One Tablet 30tabs I10 [facility] R. 09/21/2017 25mg Tablets By Mouth Every [facility], [facility] Day Discontinue Metoprolol Vitamin D3 1 po some days [facility] R. 06/27/2013 1000Unit Capsules [facility] Hothrone Unknown Doxycycline Hyclate Unknown 100mg Capsules Sulfamethoxazole-Trimetho Take [...] mouth Unknown 600mg Tablets weekly History Medications Losartan Potassium 1 by mouth every 90tabs I10 [facility] R. 09/06/2018 - 50mg Tablets day [facility], [facility] 09/28/2018 Losartan Potassium 1 by mouth every 30tabs I10 [facility] R. 08/28/2018 - 100mg day [facility], [facility] 09/06/2018 Tablets Verapamil HCL ER 1 by mouth every 30caps I10 [facility] R. 08/28/2018 - 100mg Caps ER day [facility], [facility] 09/06/2018 24HR Verapamil HCL ER 1 by mouth daily 30caps I10 [facility] R. 07/27/2018 - 120mg Caps ER for blood [facility], [facility] 08/28/2018 24HR pressure, replaces diltiazem Losartan Potassium 1 by mouth every 30tabs I10 [facility] R. 07/27/2018 - 50mg Tablets day [facility], [facility] 08/28/2018 Hydrochlorothiazide 1 by mouth every 30tabs R60.9 [facility] R. 06/05/2018 - 12.5mg day for swelling [facility], [facility] 06/26/2018 Tablets Verapamil HCL ER Take One Capsule 90caps I10 [facility] R. 08/21/2017 - 180mg Caps ER By Mouth Every , [facility] 07/27/2018 24HR Day Losartan Potassium Take One Tablet 30tabs I10 [facility] 08/21/2017 - 25mg Tablets Once Daily [facility], [facility] 07/27/2018 Doxycycline Hyclate take 1 capsule 60caps [facility]53.81 [facility] 08/10/2017 - 100mg by mouth 2 times [facility], [facility] 09/21/2017 Capsules per day Clotrimazole slowly dissolve 70units B37.0 [facility] R. 07/17/2017 - 10mg Lozenges in mouth 5 times [facility], 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 12/23/2016 - 50mg day [facility] 01/13/2017 Tablets ER 24HR Metoprolol Tartrate take one tablet 60tabs I48.91 [facility] R. 12/02/2016 - 25mg by mouth twice a [facility], [facility] 12/23/2016 Tablets day for heart and blood pressure Diltiazem CD 1 by mouth daily 90caps I48.91 [facility] R. 03/01/2016 - 180mg Caps ER 24HR for blood [facility] 12/02/2016 pressure and heart rate. Losartan Potassium take one tablet 30tabs I10 [facility] R. 02/09/2016 - 50mg Tablets by mouth every [facility] 08/21/2017 day for blood pressure Diltiazem CD 1 po daily, 30caps I48.0 [facility]. 02/09/2016 - 120mg Caps ER 24HR replaces [facility] 03/01/2016 bisoprolol Bisoprolol 1 by mouth every 30tabs I10 [facility] R. 01/19/2016 - Fumarate/Hydrochlorothiaz day For Blood [facility] 02/09/2016 lily Pressure 5-6.25mg Tablets Losartan Potassium 1 po daily for 30tabs I10 [facility]. 11/27/2015 - 25mg Tablets blood pressure, [facility] 02/09/2016 replaces amlodipine Losartan Potassium 1 po daily for 30tabs I10 [facility] R. 09/08/2015 - 25mg Tablets blood pressure, [facility] 09/22/2015 replaces amlodipine Econazole Nitrate 1 apply to 60units B35.3 [facility] 09/04/2015 - 1% Cream affected area MD Elizabeth 04/14/2016 twice a day for 2 weeks Tamiflu one by mouth bid 10caps J11.89 [facility] 08/03/2015 - 75mg Capsules for 5 days [facility] 08/13/2015 Ventolin HFA inhale two puffs 18units J11.89 [facility] R. 08/03/2015 - 108(90Base) by mouth every 4 [facility] 04/14/2016 mcg/Act Aerosol hours as needed for wheeze Doxycycline Hyclate 1 tab by mouth 42caps S80.929A Bianca 04/06/2015 - 100mg twice a day x 21 [facility], 04/14/[address] [facility] Bisoprolol Take One Tablet 30tabs I10 [facility] R. 01/03/2014 - Fumarate/Hydrochlorothiaz By Mouth For [facility], [facility] 01/19/2016 lily Heart And Blood 2.5-6.25mg Tablets Pressure Amlodipine Besylate Take One Tablet 90tabs I10 [facility] R. 06/27/2013 - 10mg By Mouth Once [facility] 11/27/2015 Tablets Daily [employer] [place]-3 several times [facility] 06/27/2013 - 300mg weekly [facility] 06/16/2017 Capsules Magnesium Taurate 1 or 2 daily [facility] 06/27/2013 - 125mg [facility] 01/13/2017 Amlodipine Besylate 1 po daily for 30tabs 401.9 [facility]. 05/30/2013 - 5mg Tablets blood pressure [facility] 06/27/2013 Lisinopril 1 po qd 30tabs 401.9 [facility] 04/30/2013 - 10mg Tablets [facility] 05/30/2013 One Daily [facility] 04/16/2013 - Tablets [facility] 04/14/2016 Calcium + D [facility] R. 04/16/2013 - [facility] 06/27/2013 [id number] Chewtabs Lisinopril/Hydrochlorothi 1 po qd for 30tabs 401.9 [facility] 04/16/2013 - azide blood pressure [facility] 04/16/2013 10-12.5mg Tablets Bisoprolol 1 po daily for 30tabs 401.9 [facility] 04/16/2013 - Fumarate/Hydrochlorothiaz heart and blood [facility] 01/03/2014 lily pressure 5-6.25mg Tablets Xarelto [...] CPT Code Status Date Vaccine Lot # [id number] Given 10/17/2013 Tdap (Adacel) [id number] Refused 12/02/2016 Influenza Virus Vaccine, Quadrivalent, 3 Yr > Quad , Preserv Free Vital Signs Date Vital Result Comment 09/28/2018 3:03pm Weight 173.00 lb Weight 78.473 kg BP Systolic 130 mmHg BP Diastolic 80 mmHg Heart Rate 60 /min Body Temperature 98.0 F Respiratory Rate 16 /min 09/07/2018 11:39am Weight 174.00 lb Weight 78.926 [...] H/L Range Note CBC Auto Diff 05/14/2018 [facility] White Blood 4.7 10^3/uL N 3.5-10.8 [phone] Count Red Blood Count 4.56 10^6/uL N [...] Cells % 0.1 Comp Metabolic Panel 05/14/2018 [facility] Sodium 139 mmol/L N 135-145 [phone] Potassium 4.5 mmol/L N 3.5-5.0 Chloride 106 [...] Egfr 78.3 >60 1 Laboratory test 04/16/2018 [facility] Anti Diuretic 1.5 pg/mL <4.3 2 finding [phone] Hormone CBC Auto Diff 04/16/2018 [facility] White Blood 5.0 10^3/uL N 3.5-10.8 [phone] Count Red Blood Count 4.51 10^6/uL N [...] Cells % 0.1 Comp Metabolic Panel 04/16/2018 [facility] Sodium 142 mmol/L N 135-145 [phone] Potassium 4.1 mmol/L N 3.5-5.0 Chloride 106 [...] Egfr 96.1 >60 3 Alkaline Phos 04/16/2018 [facility] Alkaline 132 U/L Abnormal 35 - Isoenzymes [phone] Phosphatase 104 Alp Liver 1% 30.3 % 27.8-76.3 Alp Liver 1 40.0 IU/L 16.2-70.2 Alp Liver 2% 6.0 % 0.0-8.0 Alp Liver 2 7.9 IU/L Abnormal 0.0-5.8 Alp Bone % 35.5 % 19.1-67.7 Alp Bone 46.9 IU/L Abnormal 12.1-42.7 Alp Intestine % 28.2 % Abnormal 0.0-20.6 Alp Intestine 37.2 IU/L Abnormal 0.0-11.0 Alp Placental NotPresent 4 Ssa/SSB Abs Igg 04/16/2018 [facility] SS-A/Ro Antibody <0.2 U 5 [phone] SS-B/La Antibody <0.2 U 6 CBC Auto Diff 02/14/2018 [facility] White Blood 6.0 10^3/uL N 3.5-10.8 [phone] Count Red Blood Count 4.18 10^6/uL N [...] Cells % 0.1 Comp Metabolic Panel 02/14/2018 [facility] Sodium 139 mmol/L N 135-145 [phone] Potassium 3.9 mmol/L N 3.5-5.0 Chloride 106 [...] >60 Egfr 87.6 >60 7 Statin 01/05/2018 [facility] Ast (Sgot) 31 U/L N 13 -39 8 [phone] Alt 24 U/L N 7-52 9 Lipid Profile 01/05/2018 [facility] Triglycerides 147 mg/dL 10 (Trig/Chol/HDL) [phone] Cholesterol 136 mg/dL 11 HDL Cholesterol 73.9 mg/dL 12 LDL Cholesterol 33 mg/dL 13 BUN/Creat/GFR 12/13/2017 [facility] Poc Blood Urea 25 mg/dL N 8-26 [phone] Nitrogen Poc Creatinine 0.9 mg/dL N 0.6-1.3 14 Poc BUN/Creatinine Ratio 27.8 High 8-20 Egfr Non- 61.4 >60 Egfr 74.3 >60 15 Laboratory test 09/25/2017 [facility] Cologuard <pending> finding [address], [address] [place] [address] [phone] CBC Auto Diff 08/10/2017 [facility] White Blood 5.0 10^3/uL N 3.5-10 [phone] Count .8 Red Blood Count 4.45 10^6/uL [...] Cells % 0.3 Comp Metabolic Panel 08/10/2017 [facility] Sodium 141 mmol/L N 139-145 [phone] Potassium 3.9 mmol/L N 3.5-5.0 Chloride 105 [...] Egfr 100.8 >60 16 Tick-Borne Panel 08/10/2017 [facility] Babesia Negative Negative PCR Blood [phone] microti PCR Babesia ducani Negative Negative Babesia divergens/Mo-1 Negative Negative 17 Anaplasma phagocytophilum Negative Negative Ehrlichia chaffeensis Negative Negative Ehrlichia ewingii/canis Negative Negative Ehrlichia muris-like Negative Negative 18 B. miyamotoi PCR, B Negative Negative 19 Lyme Western 08/10/2017 [facility] Lyme Disease Negative Negative Blot [phone] IgG Ab WB Lyme Disease IgG Bands Present p66,p41,p39,p23 kDa Lyme Disease IgM Ab WB Negative Negative Lyme Disease IgM Bands Present p41 kDa Lyme Disease Interpretation See Comment 20 Urinalysis Profile 07/11/2017 [facility] Urine Color Yellow [phone] Urine Appearance Clear Urine Specific [place] 1.010 N 1.010-1.030 Urine pH 7.0 N [...] Present Abnormal Absent Urine Culture And 07/11/2017 [facility] Urine Culture SEE RESULT 21 Sensitivities [phone] BELOW CBC Auto Diff 07/11/2017 [facility] White Blood 8.4 10^3/uL N 3.5-9 [phone] Count 0.8 Red Blood Count 4.61 10^6/uL [...] Red Blood Cells % 0 Inr/Protime 07/11/2017 [facility] Inr 1.15 High 0.77-1.02 [phone] Laboratory test 07/11/2017 [facility] Lactic Acid 1.3 N 0.5-2.0 22 finding [phone] mmol/L Comp Metabolic 07/11/2017 [facility] Sodium 141 N 139-145 Panel [phone] mmol/L Potassium 3.8 mmol/L N 3.5-5.0 Chloride [...] Egfr 111.3 >60 23 Laboratory test 07/11/2017 [facility] Troponin-I (TnI ) 0.01 ng/mL <0.04 finding [phone] Type & Screen 07/11/2017 [facility] Patient Blood O Positive [phone] Type Antibody Screen NEGATIVE Laboratory 07/06/2017 [facility] Surgical Pathology SEE RESULT 24 test finding [phone] BELOW CMV Igg/Igm 06/23/2017 [facility] Cytomegalovirus Negative Negative 25 [phone] IgG Antibody Cytomegalovirus IgM Antibody Negative Negative Анна Albright 06/23/2017 [facility] Ebv Capsid Positive Negative Comprehensive [phone] Ag IgG Ab Ebv Capsid Ag IgM Ab Negative Negative Анна-Albright Nuclear Antigen Positive Negative Анна-Albright Virus Interp See Comment 26 Laboratory test 06/23/2017 [facility] Magnesium 2.2 mg/dL N 1.9-2.7 27 finding [phone] Tick-Borne Panel 06/19/2017 [facility] Babesia Negative Negative PCR Blood [phone] microti PCR Babesia ducani Negative Negative Babesia divergens/Mo-1 Negative Negative 28 Anaplasma phagocytophilum Negative Negative Ehrlichia chaffeensis Negative Negative Ehrlichia ewingii/canis Negative Negative Ehrlichia muris-like Negative Negative 29 B. miyamotoi PCR, B Negative Negative 30 Liver Function 06/19/2017 [facility] Total Protein 7.7 g/dL N 6.4-8.9 Panel [phone] Albumin 4.3 g/dL N 3.2-5.2 Globulin 3.4 g/dL N 2-4 Albumin/Globulin Ratio 1.3 N 1-3 Total Bilirubin 1.50 mg/dL High 0.2-1.0 Direct Bilirubin 0.20 mg/dL High 0.03-0.18 Indirect Bilirubin 1.3 mg/dL High 0.3-1.0 Alkaline Phosphatase 221 U/L High 34-104 Alt 61 U/L High 7-52 Ast 53 U/L High 13-39 Laboratory 06/19/2017 [facility] Hepatitis B Nonreactive Nonreactive test finding [phone] Surface Ag Hepatitis B 06/19/2017 [facility] Hepatitis B Nonreactive Nonreactive Finesse AB Titer [phone] Surface AB Hep B Surf AB Level < 3.10 mIU/mL <12 31 Laboratory 06/19/2017 [facility] Hepatitis C Nonreactive Nonreactive test finding [phone] Antibody Hepatitis A Igg Antibody, Serum Negative 32 Hepatitis B Core AB Total Negative Negative 33 CBC Auto Diff 06/16/2017 [facility] White Blood 5.4 10^3/uL N 3.5-10.8 [phone] Count Red Blood Count 4.77 10^6/uL N [...] um3 N 7.4-10.4 Comp Metabolic Panel 06/16/2017 [facility] Sodium 142 mmol/L N 133-145 [phone] Potassium 4.9 mmol/L N 3.5-5.0 Chloride 104 [...] Egfr 107.6 >60 34 Laboratory test 06/16/2017 [facility] Lyme Disease Positive Negative 35 finding [phone] Serology Manual 06/16/2017 [facility] Immature 1 % N 0-9 Differential [phone] Granulocytes Neutrophil % 54 % N 38-83 [...] RBC Morphology Normal Normal Lyme Western 06/16/2017 [facility] Lyme Disease Positive Abnormal Negative Blot [phone] IgG Ab WB Lyme Disease IgG Bands Present See Comment kDa 36 Lyme Disease IgM Ab WB Negative Negative Lyme Disease IgM Bands Present p41, kDa Lyme Disease Interpretation See Comment 37 Basic Metabolic 05/30/2017 [facility] Sodium 139 mmol /L N 133-145 Panel [phone] Potassium 4.3 mmol/L N 3.5-5.0 Chloride 104 mmol/L N 101-111 Co2 Carbon Dioxide 30 mmol/L N 22-32 Anion Gap 5 mmol/L N 2-11 Glucose 93 mg/dL N 70-100 Blood Urea Nitrogen 13 mg/dL N 6-24 Creatinine 0.77 mg/dL N 0.51-0.95 BUN/Creatinine Ratio 16.9 N 8-20 Calcium 9.7 mg/dL N 8.6-10.3 Egfr Non- 73.7 >60 Egfr 94.8 >60 38 Basic Metabolic 09/22/2015 [facility] Sodium 140 mmol /L N 133-145 Panel [phone] Potassium 4.1 mmol/L N 3.5-5.0 Chloride 104 mmol/L N 101-111 Co2 Carbon Dioxide 29 mmol/L N 22-32 Anion Gap 7 mmol/L N 2-11 Glucose 88 mg/dL N 70-100 Blood Urea Nitrogen 14 mg/dL N 6-24 Creatinine 0.72 mg/dL N 0.51-0.95 BUN/Creatinine Ratio 19.4 N 8-20 Calcium 9.9 mg/dL N 8.6-10.3 Egfr Non- 79.9 N >60 Egfr 102.7 N >60 39 Statin 09/22/2015 [facility] Ast (Sgot) 22 U/L N 13 -39 40 [phone] Alt (SGPT) 14 U/L N 7-52 41 Lipid Profile 09/22/2015 [facility] Triglycerides 103 mg/dL N 42 (Trig/Chol/HDL) [phone] Cholesterol 192 mg/dL N 43 HDL Cholesterol 61.6 mg/dL N 44 LDL Cholesterol 110 mg/dL N 45 Laboratory test 09/22/2015 [facility] TSH (Thyroid 2.95 ?IU/mL N 0.34-5.60 46 finding [phone] Stim Horm) Laboratory test 09/04/2015 [facility] Wound SEE RESULT 47 finding [phone] Culture/Sensi BELOW Laboratory test 11/04/2013 [facility] Surgical RUN DATE: 48 finding [phone] Pathology <SEE NOTE> Laboratory test 10/17/2013 [facility] Cytology RUN DATE: 49 finding [phone] SEE NOTE> Urine DIP 10/17/2013 In House Lab Specific 1.020 1.01-1.02 [phone] [place] Urine pH 5 5-6 Leukocytes + Neg Urine Nitrites NEG Neg Total Protein, Urine NEG Neg Urine Glucose NORM Norm Urine Ketones NEG Neg Urobilinogen NORM Norm Urine Bilirubin NEG Neg Urine Blood 250 High Neg HPV High 10/17/2013 [facility] Human Papillomavirus See Comment N 50 Risk [phone] Source HPV High Risk Type 16, PCR Negative N Negative HPV High Risk Type 18, PCR Negative N Negative HPV Other Risk types Negative N Negative 51 Laboratory test 04/30/2013 [facility] Hemoglobin A1c 4.7 % Less than 52 finding [phone] 6.0 TSH (Thyroid Stimulating Horm) 2.84 miu/mL 0.34-5.60 Lipid Profile 04/30/2013 [facility] Triglycerides 79 mg/dL 40-200 (Trig/Chol/HDL) [phone] Cholesterol 160 mg/dL Less than 200 HDL Cholesterol 58 mg/dL 40-60 53 Cholesterol/HDL Ratio 2.8 Average 1-4.44 LDL Cholesterol 86.2 Less Than 100 54 Basic Metabolic 04/30/2013 [facility] Sodium 138 mmol /L 133-145 Panel [phone] Potassium 3.9 mmol/L 3.5-5.0 Chloride 103 mmol/L [...] than overnight. A significant amount of circulating PRESETTER OPERATOR is associated with platelets. Therefore, various conditions affecting platelets may also affect PRESETTER OPERATOR levels. Platelet rich samples have been shown to have PRESETTER OPERATOR levels on the order of 10 times the value of platelet poor samples. PRESETTER OPERATOR levels obtained in the process of a water deprivation test may be difficult to interpret because of the many nonstandardized variables in this test. Expert consultation is recommended in these circumstances. This test was developed and its performance characteristics determined by [facility] in a manner consistent with CLIA requirements. This test has not been cleared or approved by the U.S. Food and Drug Administration. Test Performed by: [facility] [address] [id number] [place] [address] 3 Because ethnic data is not always [...] REFERENCE VALUE Not present Test Performed by: [facility] [address] [place] [address] 5 REFERENCE VALUE <1.0 (Negative) 6 REFERENCE VALUE <1.0 (Negative) Test Performed by: [facility] [address] [place] [address] 7 Because ethnic data is not always [...] 5 Kidney failure <15 (or dialysis) 8 [id number] 10 Desirable: <150 Borderline High: 150-199 High: 200-499 Very High: >500 11 Desirable: <200 Borderline High: 200-239 High: >239 12 Low: <40 Desirable: 40-60 High: >60 13 Desirable: <100 Near Optimal: 100-129 Borderline High: 130-159 High: 160-189 Very High: >189 14 [facility] [employer] Guide: [id number] 15 Because ethnic data is not always [...] developed and its performance characteristics determined by [facility] in a manner consistent with CLIA requirements. This test has not been cleared or approved by the U.S. Food and Drug Administration. 18 ADDITIONAL INFORMATION This test was developed and its performance characteristics determined by [facility] in a manner consistent with CLIA requirements. This test has not been cleared or approved by the U.S. Food and Drug Administration. 19 ADDITIONAL INFORMATION This test was developed and its performance characteristics determined by [facility] in a manner consistent with CLIA requirements. This test has not been cleared or approved by the U.S. Food and Drug Administration. Test Performed by: [facility] - [address] [address] 20 Specific serologic response to B. burgdorferi [...] screening test (e.g., EIA). Test Performed by: [facility] [address] [place] [address] 21 SEE RESULT BELOW Name: HECTOR FERGUSON : [address]: Sridhar Nava MD Acct: [id number] Unit: [id number] AGE: 71 Location: ICU [id number] Re07/11/17 Dis: 07/12/17 SEX: F Status: DIS IN SPEC: [id number] SAUL: 07/11/[address]: Kyle Price MD REQ: [id number] RECD: 07/11/17 STATUS: YUDY JASSO DR: Richard Fontanez CONTINUOUS IMPROVEMENT ANALYST _ SOURCE: URINE SPDESC: ORDERED: Urine Culture Procedure Result Reported Site Urine Culture Final 07/13/17- 923 ML No Growth (<1,000 CFU/mL) * ML - Main Lab . END OF REPORT DEPARTMENT OF PATHOLOGY, [address] [place] [address] Melvin Cardenas M.D. Director [facility] # [id number] 22 [facility] Severe Sepsis and Septic Shock Management Bundle [...] (or dialysis) 24 SEE RESULT BELOW Name: JIANHECTOR J : [address]: Richard Fontanez NP Acct: [id number] Unit: [id number] AGE: 71 Location: [facility] Re07/06/17 SEX: F Status: REG REF SPEC: [id number] SAUL: 07/06/17-[address] [facility] [address]: Richard Fontanez NP REQ: [id number] RECD: 07/06/17 STATUS: SOUT _ ORDERED: LEVEL 4, IMMUNO-FIRST, IMMUNO-ADDL COMMENTS: [id number] FINAL DIAGNOSIS Skin, left thigh, excision: -- [...] 0945 END OF REPORT DEPARTMENT OF PATHOLOGY, [address] [place] [address] Melvin Cardenas M.D. Director [facility] # [id number] 25 Test Performed by: [facility] [address] [place] [address] [id number] RESULT: Results suggest past infection. ADDITIONAL INFORMATION [...] primary infection with EBV. Test Performed by: [facility] [place] [address] 27 [id number] ADDITIONAL INFORMATION This test was developed and its performance characteristics determined by [facility] in a manner consistent with CLIA requirements. This test has not been cleared or approved by the U.S. Food and Drug Administration. 29 ADDITIONAL INFORMATION This test was developed and its performance characteristics determined by [facility] in a manner consistent with CLIA requirements. This test has not been cleared or approved by the U.S. Food and Drug Administration. 30 ADDITIONAL INFORMATION This test was developed and its performance characteristics determined by [facility] in a manner consistent with CLIA requirements. This test has not been cleared or approved by the U.S. Food and Drug Administration. Test Performed by: [facility] - [address] [address] 31 This assay does not differentiate between reactivity due to a vaccine-induced immune response or an immune response induced by infection with HBV. 32 Result indicates no past exposure or immunity to hepatitis A infection. REFERENCE VALUE Unvaccinated: Negative Vaccinated: Positive Test Performed by: [facility] [place] [address] 33 Test Performed by: [place] [address] 34 Because ethnic data is not always [...] testing ordered by reflex. Test Performed by: [place] [address] 36 RESULT: p93, p66, p41, p39, p28, [...] screening test (e.g., EIA). Test Performed by: [place] [address] 38 Because ethnic data is not always [...] 5 Kidney failure <15 (or dialysis) 40 [id number] Desirable <150 Borderline high 150-199 High 200-499 Very High >500 43 Desirable <200 Borderline high 200-239 High >239 44 Low <40 Desirable: 40-60 High: >60 45 Desirable: <100 mg/dL Near Optimal: 100-129 mg/dL Borderline High: 130-159 mg/dL High: 160-189 mg/dL Very High: >189 mg/dL 46 [id number] 47 SEE RESULT BELOW Name: HECTOR FERGUSON: [address]: Willis Johnson MD Acct: [id number] Unit: [id number] AGE: 69 Location: [facility] Re09/04/15 SEX: F Status: REG REF SPEC: [id number] SAUL: 09/04/15-[address]: Willis Johnson MD REQ: [id number] RECD: 09/04/15 STATUS: COMP _ SOURCE: FOOT,RIGHT SPDESC: ORDERED: Culture Stain COMMENTS: [id number] Specimen Description right heal Procedure Result Reported Site Wound/Misc Gram Stain Final 09/05/15- 07 ML 1+ Epithelial Cells 2+ Neutrophils 2+ Gram Positive Cocci Wound/Misc Culture Final 09/06/15- 1149 ML Organism 1 NORMAL FARZANEH Quantity 2+ * ML - MAIN LAB ([facility]) . END OF REPORT * ML=Testing performed at Main Lab DEPARTMENT OF PATHOLOGY, [facility] [employer] [address] [place], [place] [address] Melvin Cardenas M.D. Director [facility] # [id number] 48 RUN DATE: 11/06/13 [facility] LAB LIVE PAGE 1 RUN TIME: 5103 [facility] [employer] [place], [place] [address] Specimen Inquiry Name: HECTOR FERGUSON : [address]: Richard Fontanez NP Acct: [id number] Unit: [id number] AGE: 68 Location: [facility] Re11/04/13 SEX: F Status: REG REF SPEC: [id number] SAUL: 11/04/13-[address]: Richard Fontanez NP REQ: [id number] RECD: 11/04/13 STATUS: SOUT _ ORDERED: LEVEL IV FINAL DIAGNOSIS Skin, anterior chest wall, biopsy: Hemangioma. CLINICAL HISTORY Present for close to 10 years, thought it started as a skin tag, no pain, has slowly grown larger PRE-OPERATIVE DIAGNOSIS ? basal cell carcinoma GROSS DESCRIPTION The specimen is received in formalin labeled Hector Ferguson, No Source Identified with a requisition labeled [...] performed at Main Lab DEPARTMENT OF PATHOLOGY, [address] [place] [address] Melvin Cardenas M.D. Director [facility] # [id number] 49 RUN DATE: 10/18/13 [facility] LAB LIVE PAGE 1 RUN TIME: [address] [place] [address] Specimen Inquiry Name: HECTOR FERGUSON : [address]: Richard Fontanez NP Acct: [id number] Unit: [id number] AGE: 68 Location: [facility] Re10/17/13 SEX: F Status: REG REF SPEC: [id number] SAUL: 10/17/[address] [facility] [address]: Richard Fontanez NP REQ: [id number] RECD: 10/17/13 STATUS: SOUT _ ORDERED: IMAGE ANALYSIS, HPV/Thin Prep FINAL DIAGNOSIS Negative for Intraepithelial lesion or Malignancy COMMENTS: Specimen sent to [facility] in [place], [place] on 10/18/13 by JUAN at 1059. [...] was evaluated with the assistance of the ThinPrep Test Imaging System. Due to cytologic findings at the master welder microscope, comprehensive manual rescreening by a Caterpillar Operator may be required. The Pap Smear is [...] performed at Main Lab DEPARTMENT OF PATHOLOGY, [address] [place] [address] Melvin Cardenas M.D. Director [facility] # [id number] 50 RESULT: Ectocervical/Endocervical 51 The following Other High Risk HPV types were not detected: 31, 33, 35, 39, 45, 51, 52, 56, 58, 59, 66, and 68 Test Performed by: [place] [address] Candy Rolling Machine Operator: Kiko Rizzo III, M.D. 52 Therapeutic target for the treatment of diabetes Mellitus patients is <7% HBA1C, and in selective patients <6.0%.Please refer to [place] [employer] Diabetic care guidelines for further [...] (or dialysis) Procedures Date Code Description Status 09/28/2018 93909 Paring Or [place] Or Callus Completed 06/05/2018 08793 EKG, at Least 12 Leads w/Interpretation and Report Completed 07/06/2017 67496 Excision Lesion,Trunk,Arm 2-3 CM Completed 11/04/2013 67234 Excision Of Lesion (Trunk,Arm,Leg) .6 To 1 CM. Completed 04/30/2013 01020 EKG, at Least 12 Leads w/Interpretation and Report Completed 04/16/2013 32980 EKG, at Least 12 Leads w/Interpretation and Report Completed Encounters Type Date Location Provider Dx Diagnosis Office Visit 09/07/2018 Main Office Richard Fontanez, S76.111A Strain of right 11:15a SENIOR CLINICIAN-C quadriceps muscle, fascia and tendon, init Office Visit 08/28/2018 Main Office Richard Fontanez, I10 Essential ( primary) 3:00p SENIOR CLINICIAN-C hypertension R60.9 Edema, unspecified Office Visit 07/27/2018 2:15p Main Office Ric[place]glenn Fontanez, I10 Essential (primary) SENIOR CLINICIAN-C hypertension R60.9 Edema, unspecified S90.852A Superficial foreign body, left foot, initial encounter Office Visit 06/26/2018 10:45a Main Office Richard Fontanez, R60.9 Edema, unspecified SENIOR CLINICIAN-C I10 Essential (primary) hypertension Office Visit 06/05/2018 10:30a Main Office Richard Fontanez, R60.9 Edema, unspecified SENIOR CLINICIAN-C I10 Essential (primary) hypertension Office Visit 01/05/2018 4:15p Main Office Ric[place] R. I10 Essential ( primary) Storm, SENIOR CLINICIAN-C hypertension Office Visit 11/09/2017 9:45a Main Office [place]ownti R. I10 Essential ( primary) Storm, SENIOR CLINICIAN-C hypertension Office Visit 09/25/2017 1:30p Main Office Ricowntсергей R. Z00.00 Encntr for general Storm, SENIOR CLINICIAN-C adult medical exam w/o abnormal findings A69.20 Lyme disease, unspecified Z12.31 Encntr screen mammogram for malignant neoplasm of breast Office Visit 09/21/2017 11:30a Main Office Richard Fontanez, I10 Essential (primary) SENIOR CLINICIAN-C hypertension A69.20 Lyme disease, unspecified Office Visit 08/21/2017 10:30a Main Office Richard Fontanez, R41.3 Other amnesia SENIOR CLINICIAN-C S50.861A Insect bite (nonvenomous) of right forearm, init encntr I48.91 Unspecified atrial fibrillation Office Visit 08/16/2017 10:30a Main Office Willis Johnson, H53.10 Unspecified MD subjective visual disturbances R41.3 Other amnesia Office Visit 08/10/2017 10:15a Main Office Cecile R53.81 Other malaise Shortle, CONTINUOUS IMPROVEMENT ANALYST Office Visit 08/07/2017 11:15a Main Office Cecile S50.861A Insect bite Shortle, CONTINUOUS IMPROVEMENT ANALYST (nonvenomous) of right forearm, init encntr Office Visit 06/23/2017 2:30p Main Office Cecile R21 Rash and other Shortle, CONTINUOUS IMPROVEMENT ANALYST nonspecific skin eruption R20.2 Paresthesia of skin Office Visit 06/19/2017 9:30a Main Office Yamilet Obrien, R20.2 Paresthesia of skin M.DWilliam, R.DWilliam S50.861A Insect bite (nonvenomous) of right forearm, init encntr R94.5 Abnormal results of liver function studies Office Visit 06/16/2017 9:45a Main Office Cecile Gutierrez, R20.2 Paresthesia of skin CONTINUOUS IMPROVEMENT ANALYST I10 Essential (primary) hypertension Office Visit 01/30/2017 10:15a Main Office Richard Fontanez, I10 Essential (primary) SENIOR CLINICIAN-C hypertension Office Visit 01/13/2017 11:30a Main Office Richard Fontanez, I10 Essential (primary) SENIOR CLINICIAN-C hypertension Z12.31 Encntr screen mammogram for malignant neoplasm of breast Office Visit 12/23/2016 11:15a Main Office Richard Fontanez, I10 Essential (primary) SENIOR CLINICIAN-C hypertension I48.91 Unspecified atrial fibrillation Office Visit 12/02/2016 3:45p Main Office Richard Fontanez, I10 Essential (primary) SENIOR CLINICIAN-C hypertension I48.91 Unspecified atrial fibrillation Office Visit 04/14/2016 3:00p Main Office Richard Fontanez, I10 Essential (primary) SENIOR CLINICIAN-C hypertension I48.0 Paroxysmal atrial fibrillation Office Visit 03/01/2016 2:45p Main Office Richard Fontanez, I10 Essential (primary) SENIOR CLINICIAN-C hypertension I48.0 Paroxysmal atrial fibrillation Office Visit 02/09/2016 2:45p Main Office Richard Fontanez, I10 Essential (primary) SENIOR CLINICIAN-C hypertension Office Visit 01/19/2016 3:00p Main Office Richard Fontanez, I10 Essential (primary) SENIOR CLINICIAN-C hypertension Office Visit 11/27/2015 3:00p Main Office Richard Fontanez, I10 Essential (primary) SENIOR CLINICIAN-C hypertension S50.861A Insect bite (nonvenomous) of right forearm, init encntr Office Visit 09/22/2015 10:45a Main Office Richard Fontanez, I10 Essential (primary) SENIOR CLINICIAN-C hypertension Office Visit 09/08/2015 9:30a Main Office Richard Fontanez, I10 Essential (primary) SENIOR CLINICIAN-C hypertension M41.9 Scoliosis, unspecified Office Visit 09/04/2015 11:00a Main Office Willis Johnson, S90.851A Superficial foreign body, right foot, initial encounter B35.3 Tinea pedis Office Visit 08/03/2015 2:30p Main Office Richard Jose J11.89 Influenza due to Storm, SENIOR CLINICIAN-C unidentified influenza virus w oth manifest Office Visit 04/06/2015 3:00p Main Office Bianca S80.929A Unsp superficial Davina, injury of unsp SENIOR CLINICIAN-C lower leg, init encntr Office Visit 05/13/2014 10:45a Main Office Richard Jose 401.9 Hypertension Unspec Storm, SENIOR CLINICIAN-C 788.39 Incontinence Urinary Other Office Visit 10/17/2013 2:00p Main Office Richard Jose V70.0 Examination General Storm, SENIOR CLINICIAN-C Medical Routine [facility] 401.9 Hypertension Unspec 782.9 Skin & Integumentary Tissue Other Symptoms V06.1 Crqtvguerr-Igavspb-Qivpvdjg Combined (DTaP) Office Visit 07/18/2013 2:30p Main Office Richard Jose 401.9 Hypertension Unspec Storm, SENIOR CLINICIAN-C Office Visit 06/27/2013 10:00a Main Office Shawnti R. 401.9 Hypertension Unspec Storm, SENIOR CLINICIAN-C Office Visit 05/30/2013 12:00p Main Office Shawnti R. 401.9 Hypertension Unspec Storm, SENIOR CLINICIAN-C Office Visit 04/30/2013 10:45a Main Office Shawnti R. 401.9 Hypertension Unspec Storm, SENIOR CLINICIAN-C 427.31 Atrial Fibrillation 300.02 Anxiety Disorder Generalized Office Visit 04/16/2013 2:15p Main Office Shawnti R. 401.9 Hypertension Unspec Storm, SENIOR CLINICIAN-C 427.31 Atrial Fibrillation Plan of Treatment Future Appointment(s):01/29/2019 2:30 pm - FARTUN AlmarazC at Main Didwoo8909/28/2018 - ANITRA Almaraz-CI10 Essential (primary) hypertensionNew Medication:Losartan Potassium 25 mg - 1 by mouth every dayComments:doing well, edema has resolved, heart rate is controlled, continue current medications, follow in 4 months, sooner if neededFollow up:4 dsjhhdX16.111D Strain of right quadriceps muscle, fascia and tendon, subseqNew Therapy:Comments:doing better, continue PTM46.1 Sacroiliitis, not elsewhere classifiedComments:will refer to [id number] Corns and callositiesComments: shaved with #15 blade, tolerated well
--- OUTSIDE RECORDS SUMMARY | 2018-09-30 13:11 | XMS REPORT | Continuity of Care Document ---
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 08/28/2018 100mg Caps ER day [facility], [facility]-C 24HR Losartan Potassium 1 by mouth every 30tabs I10 [facility] R. 08/28/2018 100mg day [facility], [facility]-C Tablets Hydrochlorothiazide 1 by mouth every 30tabs R60.9 [facility] R. 06/26/2018 25mg day [facility], [facility]-C Tablets Atorvastatin Calcium 1 by mouth every 90tabs I10 [facility] R. 01/05/2018 20mg day [facility], [facility]-C Tablets Atenolol Take One Tablet 30tabs I10 [facility] R. 09/21/2017 25mg Tablets By Mouth Every [facility], [facility] Day Discontinue Metoprolol Vitamin D3 1 po some days [facility] R. 06/27/2013 1000Unit Capsules [facility] Doxycycline Hyclate Unknown 100mg Capsules Sulfamethoxazole-Trimetho Take [...] Medications Verapamil HCL ER 1 by mouth daily 30caps I10 Richard R. 07/27/2018 - 120mg Caps ER for blood Huseyin, B[facility] TE[facility]-C 08/28/2018 24HR pressure, replaces diltiazem Losartan Potassium 1 by mouth every 30tabs I10 [place] R. 07/27/2018 - 50mg Tablets day [facility], [facility] 08/28/2018 Hydrochlorothiazide 1 by mouth every 30tabs [facility]60.9 [facility] 06/05/2018 - 12.5mg day for swelling [facility] 06/26/2018 Tablets Verapamil HCL ER Take One Capsule 90caps I10 [place] [facility]. 08/21/2017 - 180mg Caps ER By Mouth Every [facility], [facility] 07/27/2018 24HR Day Losartan Potassium Take One Tablet 30tabs I10 [facility] 08/[facility]2017 - 25mg Tablets Once Daily [facility] 07/27/2018 Doxycycline Hyclate take 1 capsule 60caps R53.81 [facility] R. 08/10/2017 - 100mg by mouth 2 times [facility] 09/21/2017 Capsules per day Clotrimazole slowly dissolve 70units B37.0 [facility] R 07/17/2017 - 10mg Lozenges in mouth 5 times [facility] 08/16/2017 daily for 14 days Doxycycline Hyclate 1 tab by mouth 56tabs [facility] 06/27/2017 - 100mg twice a day for Shortle, RN DIGESTIVE 08/10/2017 Tablets 28 days for infection Verapamil HCL ER take one tablet 30tabs I10 Willis 01/13/2017 - 120mg Tablets by mouth every MD Elizabeth 08/21/2017 ER day; replaces metoprolol Metoprolol Succinate ER 1 by mouth every 30tabs I10 [facility] 12/23[facility]2016 - 50mg day [facility] 01/13/2017 Tablets ER 24HR Metoprolol Tartrate take one tablet 60tabs I48.91 [facility] R. 12/02/2016 - 25mg by mouth twice a [facility], [facility] 12/23/2016 Tablets day for heart and blood pressure Diltiazem CD 1 by mouth daily 90caps I48.91 [facility] [place]. 03/01/2016 - 180mg Caps ER 24HR for blood [facility], [facility] 12/02/2016 pressure and heart rate. Losartan Potassium take one tablet 30tabs I10 [facility] 02/09/2016 - 50mg Tablets by mouth every [facility], [facility] 08/21/2017 day for blood pressure Diltiazem CD 1 po daily, 30caps I48.0 [facility] R. 02/09/2016 - 120mg Caps ER 24HR replaces [facility] 03/01/2016 bisoprolol Bisoprolol 1 by mouth every 30tabs I10 [facility] R. 01/19/2016 - Fumarate/Hydrochlorothiaz day For Blood [facility] 02/09/2016 lily Pressure 5-6.25mg Tablets Losartan Potassium 1 po daily for 30tabs I10 [facility] R. 11/27/2015 - 25mg Tablets blood pressure, [facility] 02/09/2016 replaces amlodipine Losartan Potassium 1 po daily for 30tabs I10 [facility] R. 09/08/2015 - 25mg Tablets blood pressure, [facility] 09/22/2015 replaces amlodipine Econazole Nitrate 1 apply to 60units B35.3 [facility] 09/04/2015 - 1% Cream affected area MD Elizabeth 04/14/2016 twice a day for 2 weeks Tamiflu one by mouth bid 10caps J11.89 [facility]. 08/03/2015 - 75mg Capsules for 5 days [facility] 08/13/2015 Ventolin HFA inhale two puffs 18units J11.89 [facility]. 08/03/2015 - 108(90Base) by mouth every 4 [facility] 04/14/2016 mcg/Act Aerosol hours as needed for wheeze Doxycycline Hyclate 1 tab by mouth 42caps S80.929A Bianca 04/06/2015 - 100mg twice a day x 21 Davina 04/14/2016 Capsules days [facility] Bisoprolol Take One Tablet 30tabs I10 [facility] R. 01/03/2014 - Fumarate/Hydrochlorothiaz By Mouth For [facility] 01/19/2016 lily Heart And Blood 2.5-6.25mg Tablets Pressure Amlodipine Besylate Take One Tablet 90tabs I10 [facility] R. 06/27/2013 - 10mg By Mouth Once [facility] 11/27/2015 Tablets Daily Krill [employer] Gilbert-3 several times [facility] R. 06/27/2013 - 300mg weekly [facility] 06/16/2017 Capsules Magnesium Taurate 1 or 2 daily [facility] 06/27/2013 - 125mg [facility] 01/13/2017 Amlodipine Besylate 1 po daily for 30tabs 401.9 [facility] R. 05/30/2013 - 5mg Tablets blood pressure [facility], [facility] 06/27/2013 Lisinopril 1 po qd 30tabs 401.9 [facility] 04/30/2013 - 10mg Tablets [facility], [facility] 05/30/2013 One Daily [facility] R. 04/16/2013 - Tablets [facility], [facility] 04/14/2016 Calcium + D [facility]. 04/16/2013 - [facility], [facility] 06/27/2013 [id number] Chewtabs Lisinopril/Hydrochlorothi 1 po qd for 30tabs 401.9 [facility] R. 04/16/2013 - azide blood pressure [facility], [facility] 04/16/2013 10-12.5mg Tablets Bisoprolol 1 po daily for 30tabs 401.9 [facility] R. 04/16/2013 - Fumarate/Hydrochlorothiaz heart and blood [facility], [facility] 01/03/2014 lily pressure 5-6.25mg Tablets Xarelto take one tablet Crhis Quinones MD - 20mg Tablets by mouth [...] CPT Code Status Date Vaccine Lot # [id number] Given 10/17/2013 Tdap (Adacel) [id number] Refused 12/02/2016 Influenza Virus Vaccine, Quadrivalent, 3 Yr > Quad , Preserv Free Vital Signs Date Vital Result Comment 08/28/2018 3:00pm Weight 176.00 lb Weight 79.834 [...] H/L Range Note CBC Auto Diff 05/14/2018 [facility] White Blood 4.7 10^3/uL N 3.5-10.8 [phone] Count Red Blood Count 4.56 10^6/uL N [...] Cells % 0.1 Comp Metabolic Panel 05/14/2018 [facility] Sodium 139 mmol/L N 135-145 [phone] Potassium 4.5 mmol/L N 3.5-5.0 Chloride 106 [...] Egfr 78.3 >60 1 Laboratory test 04/16/2018 [facility] Anti Diuretic 1.5 pg/mL <4.3 2 finding [phone] Hormone CBC Auto Diff 04/16/2018 [facility] White Blood 5.0 10^3/uL N 3.5-10.8 [phone] Count Red Blood Count 4.51 10^6/uL N [...] Cells % 0.1 Comp Metabolic Panel 04/16/2018 [facility] Sodium 142 mmol/L N 135-145 [phone] Potassium 4.1 mmol/L N 3.5-5.0 Chloride 106 [...] Egfr 96.1 >60 3 Alkaline Phos 04/16/2018 [facility] Alkaline 132 U/L Abnormal 35 - Isoenzymes [phone] Phosphatase 104 Alp Liver 1% 30.3 % 27.8-76.3 Alp Liver 1 40.0 IU/L 16.2-70.2 Alp Liver 2% 6.0 % 0.0-8.0 Alp Liver 2 7.9 IU/L Abnormal 0.0-5.8 Alp Bone % 35.5 % 19.1-67.7 Alp Bone 46.9 IU/L Abnormal 12.1-42.7 Alp Intestine % 28.2 % Abnormal 0.0-20.6 Alp Intestine 37.2 IU/L Abnormal 0.0-11.0 Alp Placental NotPresent 4 Ssa/SSB Abs Igg 04/16/2018 [facility] SS-A/Ro Antibody <0.2 U 5 [phone] SS-B/La Antibody <0.2 U 6 CBC Auto Diff 02/14/2018 [facility] White Blood 6.0 10^3/uL N 3.5-10.8 [phone] Count Red Blood Count 4.18 10^6/uL N [...] Cells % 0.1 Comp Metabolic Panel 02/14/2018 [facility] Sodium 139 mmol/L N 135-145 [phone] Potassium 3.9 mmol/L N 3.5-5.0 Chloride 106 [...] >60 Egfr 87.6 >60 7 Statin 01/05/2018 [facility] Ast (Sgot) 31 U/L N 13 -39 8 [phone] Alt 24 U/L N 7-52 9 Lipid Profile 01/05/2018 [facility] Triglycerides 147 mg/dL 10 (Trig/Chol/HDL) [phone] Cholesterol 136 mg/dL 11 HDL Cholesterol 73.9 mg/dL 12 LDL Cholesterol 33 mg/dL 13 BUN/Creat/GFR 12/13/2017 [facility] Poc Blood Urea 25 mg/dL N 8-26 [phone] Nitrogen Poc Creatinine 0.9 mg/dL N 0.6-1.3 14 Poc BUN/Creatinine Ratio 27.8 High 8-20 Egfr Non- 61.4 >60 Egfr 74.3 >60 15 Laboratory test 09/25/2017 [facility] Cologuard <pending> finding [address], [address] [place] [address] [phone] CBC Auto Diff 08/10/2017 [facility] White Blood 5.0 10^3/uL N 3.5-10 [phone] Count .8 Red Blood Count 4.45 10^6/uL [...] Cells % 0.3 Comp Metabolic Panel 08/10/2017 [facility] Sodium 141 mmol/L N 139-145 [phone] Potassium 3.9 mmol/L N 3.5-5.0 Chloride 105 [...] Egfr 100.8 >60 16 Tick-Borne Panel 08/10/2017 [facility] Babesia Negative Negative PCR Blood [phone] microti PCR Babesia ducani Negative Negative Babesia divergens/Mo-1 Negative Negative 17 Anaplasma phagocytophilum Negative Negative Ehrlichia chaffeensis Negative Negative Ehrlichia ewingii/canis Negative Negative Ehrlichia muris-like Negative Negative 18 B. miyamotoi PCR, B Negative Negative 19 Lyme Western 08/10/2017 [facility] Lyme Disease Negative Negative Blot [phone] IgG Ab WB Lyme Disease IgG Bands Present p66,p41,p39,p23 kDa Lyme Disease IgM Ab WB Negative Negative Lyme Disease IgM Bands Present p41 kDa Lyme Disease Interpretation See Comment 20 Urinalysis Profile 07/11/2017 [facility] Urine Color Yellow [phone] Urine Appearance Clear Urine Specific [place] 1.010 N 1.010-1.030 Urine pH 7.0 N [...] Present Abnormal Absent Urine Culture And 07/11/2017 [facility] Urine Culture SEE RESULT 21 Sensitivities [phone] BELOW CBC Auto Diff 07/11/2017 [facility] White Blood 8.4 10^3/uL N 3.5-7 [phone] Count 0.8 Red Blood Count 4.61 10^6/uL [...] Red Blood Cells % 0 Inr/Protime 07/11/2017 [facility] Inr 1.15 High 0.77-1.02 [phone] Laboratory test 07/11/2017 [facility] Lactic Acid 1.3 N 0.5-2.0 22 finding [phone] mmol/L Comp Metabolic 07/11/2017 [facility] Sodium 141 N 139-145 Panel [phone] mmol/L Potassium 3.8 mmol/L N 3.5-5.0 Chloride [...] Egfr 111.3 >60 23 Laboratory test 07/11/2017 [facility] Troponin-I (TnI ) 0.01 ng/mL <0.04 finding [phone] Type & Screen 07/11/2017 [facility] Patient Blood O Positive [phone] Type Antibody Screen NEGATIVE Laboratory 07/06/2017 [facility] Surgical Pathology SEE RESULT 24 test finding [phone] BELOW CMV Igg/Igm 06/23/2017 [facility] Cytomegalovirus Negative Negative 25 [phone] IgG Antibody Cytomegalovirus IgM Antibody Negative Negative Анна Albright 06/23/2017 [facility] Ebv Capsid Positive Negative Comprehensive [phone] Ag IgG Ab Ebv Capsid Ag IgM Ab Negative Negative Анна-Albright Nuclear Antigen Positive Negative Анна-Albright Virus Interp See Comment 26 Laboratory test 06/23/2017 [facility] Magnesium 2.2 mg/dL N 1.9-2.7 27 finding [phone] Tick-Borne Panel 06/19/2017 [facility] Babesia Negative Negative PCR Blood [phone] microti PCR Babesia ducani Negative Negative Babesia divergens/Mo-1 Negative Negative 28 Anaplasma phagocytophilum Negative Negative Ehrlichia chaffeensis Negative Negative Ehrlichia ewingii/canis Negative Negative Ehrlichia muris-like Negative Negative 29 B. miyamotoi PCR, B Negative Negative 30 Liver Function 06/19/2017 [facility] Total Protein 7.7 g/dL N 6.4-8.9 Panel [phone] Albumin 4.3 g/dL N 3.2-5.2 Globulin 3.4 g/dL N 2-4 Albumin/Globulin Ratio 1.3 N 1-3 Total Bilirubin 1.50 mg/dL High 0.2-1.0 Direct Bilirubin 0.20 mg/dL High 0.03-0.18 Indirect Bilirubin 1.3 mg/dL High 0.3-1.0 Alkaline Phosphatase 221 U/L High 34-104 Alt 61 U/L High 7-52 Ast 53 U/L High 13-39 Laboratory 06/19/2017 [facility] Hepatitis B Nonreactive Nonreactive test finding [phone] Surface Ag Hepatitis B 06/19/2017 [facility] Hepatitis B Nonreactive Nonreactive Finesse AB Titer [phone] Surface AB Hep B Surf AB Level < 3.10 mIU/mL <12 31 Laboratory 06/19/2017 [facility] Hepatitis C Nonreactive Nonreactive test finding [phone] Antibody Hepatitis A Igg Antibody, Serum Negative 32 Hepatitis B Core AB Total Negative Negative 33 CBC Auto Diff 06/16/2017 [facility] White Blood 5.4 10^3/uL N 3.5-10.8 [phone] Count Red Blood Count 4.77 10^6/uL N [...] um3 N 7.4-10.4 Comp Metabolic Panel 06/16/2017 [facility] Sodium 142 mmol/L N 133-145 [phone] Potassium 4.9 mmol/L N 3.5-5.0 Chloride 104 [...] Egfr 107.6 >60 34 Laboratory test 06/16/2017 [facility] Lyme Disease Positive Negative 35 finding [phone] Serology Manual 06/16/2017 [facility] Immature 1 % N 0-9 Differential [phone] Granulocytes Neutrophil % 54 % N 38-83 [...] RBC Morphology Normal Normal Lyme Western 06/16/2017 [facility] Lyme Disease Positive Abnormal Negative Blot [phone] IgG Ab WB Lyme Disease IgG Bands Present See Comment kDa 36 Lyme Disease IgM Ab WB Negative Negative Lyme Disease IgM Bands Present p41, kDa Lyme Disease Interpretation See Comment 37 Basic Metabolic 05/30/2017 [facility] Sodium 139 mmol /L N 133-145 Panel [phone] Potassium 4.3 mmol/L N 3.5-5.0 Chloride 104 mmol/L N 101-111 Co2 Carbon Dioxide 30 mmol/L N 22-32 Anion Gap 5 mmol/L N 2-11 Glucose 93 mg/dL N 70-100 Blood Urea Nitrogen 13 mg/dL N 6-24 Creatinine 0.77 mg/dL N 0.51-0.95 BUN/Creatinine Ratio 16.9 N 8-20 Calcium 9.7 mg/dL N 8.6-10.3 Egfr Non- 73.7 >60 Egfr 94.8 >60 38 Basic Metabolic 09/22/2015 [facility] Sodium 140 mmol /L N 133-145 Panel [phone] Potassium 4.1 mmol/L N 3.5-5.0 Chloride 104 mmol/L N 101-111 Co2 Carbon Dioxide 29 mmol/L N 22-32 Anion Gap 7 mmol/L N 2-11 Glucose 88 mg/dL N 70-100 Blood Urea Nitrogen 14 mg/dL N 6-24 Creatinine 0.72 mg/dL N 0.51-0.95 BUN/Creatinine Ratio 19.4 N 8-20 Calcium 9.9 mg/dL N 8.6-10.3 Egfr Non- 79.9 N >60 Egfr 102.7 N >60 39 Statin 09/22/2015 [facility] Ast (Sgot) 22 U/L N 13 -39 40 [phone] Alt (SGPT) 14 U/L N 7-52 41 Lipid Profile 09/22/2015 [facility] Triglycerides 103 mg/dL N 42 (Trig/Chol/HDL) [phone] Cholesterol 192 mg/dL N 43 HDL Cholesterol 61.6 mg/dL N 44 LDL Cholesterol 110 mg/dL N 45 Laboratory test 09/22/2015 [facility] TSH (Thyroid 2.95 ?IU/mL N 0.34-5.60 46 finding [phone] Stim Horm) Laboratory test 09/04/2015 [facility] Wound SEE RESULT 47 finding [phone] Culture/Sensi BELOW Laboratory test 11/04/2013 [facility] Surgical RUN DATE: 48 finding [phone] Pathology <SEE NOTE> Laboratory test 10/17/2013 [facility] Cytology RUN DATE: 49 finding [phone] <SEE NOTE> Urine DIP 10/17/2013 In House Lab Specific 1.020 1.01-1.02 [phone] Randolph Urine pH 5 5-6 Leukocytes + Neg Urine Nitrites NEG Neg Total Protein, Urine NEG Neg Urine Glucose NORM Norm Urine Ketones NEG Neg Urobilinogen NORM Norm Urine Bilirubin NEG Neg Urine Blood 250 High Neg HPV High 10/17/2013 [facility] Human Papillomavirus See Comment N 50 Risk [phone] Source HPV High Risk Type 16, PCR Negative N Negative HPV High Risk Type 18, PCR Negative N Negative HPV Other Risk types Negative N Negative 51 Laboratory test 04/30/2013 [facility] Hemoglobin A1c 4.7 % Less than 52 finding [phone] 6.0 TSH (Thyroid Stimulating Horm) 2.84 miu/mL 0.34-5.60 Lipid Profile 04/30/2013 [facility] Triglycerides 79 mg/dL 40-200 (Trig/Chol/HDL) [phone] Cholesterol 160 mg/dL Less than 200 HDL Cholesterol 58 mg/dL 40-60 53 Cholesterol/HDL Ratio 2.8 Average 1-4.44 LDL Cholesterol 86.2 Less Than 100 54 Basic Metabolic 04/30/2013 [facility] Sodium 138 mmol /L 133-145 Panel [phone] Potassium 3.9 mmol/L 3.5-5.0 Chloride 103 mmol/L [...] than overnight. A significant amount of circulating MINI BAR ATTENDANT is associated with platelets. Therefore, various conditions affecting platelets may also affect MINI BAR ATTENDANT levels. Platelet rich samples have been shown to have MINI BAR ATTENDANT levels on the order of 10 times the value of platelet poor samples. MINI BAR ATTENDANT levels obtained in the process of a water deprivation test may be difficult to interpret because of the many nonstandardized variables in this test. Expert consultation is recommended in these circumstances. This test was developed and its performance characteristics determined by [facility] in a manner consistent with CLIA requirements. This test has not been cleared or approved by the U.S. Food and Drug Administration. Test Performed by: [facility] - [place] [address] [employer] [address] [place] [address] 3 Because ethnic data is not always [...] REFERENCE VALUE Not present Test Performed by: [facility] - [address] [address] 5 REFERENCE VALUE <1.0 (Negative) 6 REFERENCE VALUE <1.0 (Negative) Test Performed by: [facility] Giving Assistant - [place] [employer] [place] [address] 7 Because ethnic data is not always [...] 5 Kidney failure <15 (or dialysis) 8 [id number] Desirable: <150 Borderline High: 150-199 High: 200-499 Very High: >500 11 Desirable: <200 Borderline High: 200-239 High: >239 12 Low: <40 Desirable: 40-60 High: >60 13 Desirable: <100 Near Optimal: 100-129 Borderline High: 130-159 High: 160-189 Very High: >189 14 Dairy Husbandry Worker: [id number] Because ethnic data is not always [...] developed and its performance characteristics determined by [facility] in a manner consistent with CLIA requirements. This test has not been cleared or approved by the U.S. Food and Drug Administration. 18 ADDITIONAL INFORMATION This test was developed and its performance characteristics determined by [facility] in a manner consistent with CLIA requirements. This test has not been cleared or approved by the U.S. Food and Drug Administration. 19 ADDITIONAL INFORMATION This test was developed and its performance characteristics determined by [facility] in a manner consistent with CLIA requirements. This test has not been cleared or approved by the U.S. Food and Drug Administration. Test Performed by: [facility] Giving Assistant - [address] [address] 20 Specific serologic response to B. burgdorferi [...] screening test (e.g., EIA). Test Performed by: [facility] - [facility] [address] [place] [address] 21 SEE RESULT BELOW Name: HECTOR FERGUSON : [address]: Sridhar Nava MD Acct: [id number] Unit: [id number] AGE: 71 Location: ICU [id number] Re07/11/17 Dis: 07/12/17 SEX: F Status: DIS IN SPEC: [id number] SAUL: 07/11/[address] [facility] [address]: Kyle Price MD REQ: [id number] RECD: 07/11/17 STATUS: YUDY JASSO DR: Richard Fontanez RN DIGESTIVE _ SOURCE: URINE SPDESC: ORDERED: Urine Culture Procedure Result Reported Site Urine Culture Final 07/13/17- 923 ML No Growth (<1,000 CFU/mL) * ML - Main Lab . END OF REPORT DEPARTMENT OF PATHOLOGY, [address] [place] [address] Melvin Cardenas M.D. Director [facility] # [id number] 22 [facility] Severe Sepsis and Septic Shock Management [...] [address]: Richard Fontanez NP Acct: [id number] Unit: [id number] AGE: 71 Location: [facility] Re07/06/17 SEX: F Status: REG REF SPEC: [id number] SAUL: 07/06/17-[address]: Richard Fontanez NP REQ: [id number] RECD: 07/06/17 STATUS: SOUT _ ORDERED: LEVEL 4, IMMUNO-FIRST, IMMUNO-ADDL COMMENTS: [id number] FINAL DIAGNOSIS Skin, left thigh, excision: -- [...] 0945 END OF REPORT DEPARTMENT OF PATHOLOGY, [address] [place] [address] Melvin Cardenas M.D. Director [facility] # [id number] 25 Test Performed by: [facility] [place] [address] 26 RESULT: Results suggest past infection. ADDITIONAL [...] primary infection with EBV. Test Performed by: [facility] Giving Assistant - [address] [address] 27 [id number] ADDITIONAL INFORMATION This test was developed and its performance characteristics determined by [facility] in a manner consistent with CLIA requirements. This test has not been cleared or approved by the U.S. Food and Drug Administration. 29 ADDITIONAL INFORMATION This test was developed and its performance characteristics determined by [facility] in a manner consistent with CLIA requirements. This test has not been cleared or approved by the U.S. Food and Drug Administration. 30 ADDITIONAL INFORMATION This test was developed and its performance characteristics determined by [facility] in a manner consistent with CLIA requirements. This test has not been cleared or approved by the U.S. Food and Drug Administration. Test Performed by: [place] [id number] This assay does not differentiate between reactivity due to a vaccine-induced immune response or an immune response induced by infection with HBV. 32 Result indicates no past exposure or immunity to hepatitis A infection. REFERENCE VALUE Unvaccinated: Negative Vaccinated: Positive Test Performed by: [place] [id number] [address] 33 Test Performed by: [place] [address] 34 Because ethnic data is not always [...] testing ordered by reflex. Test Performed by: [facility] [place] [id number] [address] 36 RESULT: p93, p66, p41, p39, p28, [...] screening test (e.g., EIA). Test Performed by: [facility] [address] [place] [address] 38 Because ethnic data is not always [...] 5 Kidney failure <15 (or dialysis) 40 [id number] 42 Desirable <150 Borderline high 150-199 High 200-499 Very High >500 43 Desirable <200 Borderline high 200-239 High >239 44 Low <40 Desirable: 40-60 High: >60 45 Desirable: <100 mg/dL Near Optimal: 100-129 mg/dL Borderline High: 130-159 mg/dL High: 160-189 mg/dL Very High: >189 mg/dL 46 [id number] 47 SEE RESULT BELOW Name: HECTOR FERGUSON : [address]: Willis Johnson MD Acct: [id number] Unit: [id number] AGE: 69 Location: [facility] Re09/04/15 SEX: F Status: REG REF SPEC: [id number] SAUL: 09/04/15-[address] [facility] [address]: Willis Johnson MD REQ: [id number] RECD: 09/04/150869 STATUS: COMP _ SOURCE: FOOT,RIGHT SPDESC: ORDERED: Culture Stain COMMENTS: [id number] Specimen Description right heal Procedure Result Reported Site Wound/Misc Gram Stain Final 09/05/15- 725 ML 1+ Epithelial Cells 2+ Neutrophils 2+ Gram Positive Cocci Wound/Misc Culture Final 09/06/15- 114 ML Organism 1 NORMAL FARZANEH Quantity 2+ * ML - MAIN LAB ([facility]) . END OF REPORT * ML=Testing performed at Main Lab DEPARTMENT OF PATHOLOGY, [facility] [employer] [place], [place] [address] Melvin Cardenas M.D. Director [facility] # [id number] 48 RUN DATE: 11/06/13 [facility] LAB LIVE PAGE 1 RUN TIME: [address] [place] [address] Specimen Inquiry Name: HECTOR FERGUSON : [address]: Richard Fontanez NP Acct: [id number] Unit: [id number] AGE: 68 Location: [facility] Re11/04/13 SEX: F Status: REG REF SPEC: [id number] SAUL: 11/04/13-[address]: Richard Fontanez NP REQ: [id number] RECD: 11/04/13-180 STATUS: SOUT _ ORDERED: LEVEL IV FINAL [...] performed at Main Lab DEPARTMENT OF PATHOLOGY, [address] [place] [address] Melvin Cardenas M.D. Director JONATHAN # [id number] 49 RUN DATE: 10/18/13 [facility] LAB LIVE PAGE 1 RUN TIME: [address] [place], [place] [address] Specimen Inquiry Name: HECTOR FERGUSON : [address]: Richard Fontanez NP Acct: [id number] Unit: [id number] AGE: 68 Location: [facility] Re10/17/13 SEX: F Status: REG REF SPEC: [id number] SAUL: 10/17/13-[address] [facility] [address]: Richard Fontanez NP REQ: [id number] RECD: 10/17/13 STATUS: SOUT _ ORDERED: IMAGE ANALYSIS, HPV/Thin Prep FINAL DIAGNOSIS Negative for Intraepithelial lesion or Malignancy COMMENTS: Specimen sent to [facility] Giving Assistant in [place], [place] on 10/18/13 by [id number] at 1059. Results will be reported separately. A. Ectocervical/Endocervical Specimen Adequacy: Satisfactory of evaluation Transformation zone component identified Patient Information: HPV: High risk HPV DNA testing regardless of pap results. Actual Specimen Date: 10/17/13 Post Menopausal?: Y Other Pertinent History: Prior Unknown Signed (signature on file) Alfredito Sue THALIA (ASCP) 10/18 1108 This Pap test was evaluated with the assistance of the [employer] Optics[employer] Test Imaging System. Due to cytologic findings at the business process consultant microscope, comprehensive manual rescreening by a Inspector And Clipper may be required. The Pap Smear is [...] performed at Main Lab DEPARTMENT OF PATHOLOGY, [address] [place] [address] Melvin Cardenas M.D. Director [facility] # [id number] 50 RESULT: Ectocervical/Endocervical 51 The following Other High Risk HPV types were not detected: 31, 33, 35, 39, 45, 51, 52, 56, 58, 59, 66, and 68 Test Performed by: [place] [address] Paving Plant Operator: Kiko Rizzo III, M.D. 52 Therapeutic target for the treatment of diabetes Mellitus patients is <7% HBA1C, and in selective patients <6.0%.Please refer to [place] [employer] Diabetic care guidelines for further [...] dialysis) Procedures Date Code Description Status 06/05/2018 54681 EKG, at Least 12 Leads w/Interpretation and Report Completed 07/06/2017 29064 Excision Lesion,Trunk,Arm 2-3 CM Completed 11/04/2013 37047 Excision Of Lesion (Trunk,Arm,Leg) .6 To 1 CM. Completed 04/30/2013 70904 EKG, at Least 12 Leads w/Interpretation and Report Completed 04/16/2013 07081 EKG, at Least 12 Leads w/Interpretation and Report Completed Encounters Type Date Location Provider Dx Diagnosis Office Visit 07/27/2018 Main Office Richard Fontanez, I10 Essential ( primary) 2:15p BRAKE TESTER-C hypertension R60.9 Edema, unspecified S90.852A Superficial foreign body, left foot, initial encounter Office Visit 06/26/2018 10:45a Main Office Richard Fontanez, R60.9 Edema, unspecified BRAKE TESTER-C I10 Essential (primary) hypertension Office Visit 06/05/2018 10:30a Main Office Richard Fontanez, R60.9 Edema, unspecified BRAKE TESTER-C I10 Essential (primary) hypertension Office Visit 01/05/2018 4:15p Main Office Richard Jose I10 Essential ( primary) Storm, BRAKE TESTER-C hypertension Office Visit 11/09/2017 9:45a Main Office Richard Jose I10 Essential ( primary) Storm, BRAKE TESTER-C hypertension Office Visit 09/25/2017 1:30p Main Office Richard Jose Z00.00 Encntr for general Storm, BRAKE TESTER-C adult medical exam w/o abnormal findings A69.20 Lyme disease, unspecified Z12.31 Encntr screen mammogram for malignant neoplasm of breast Office Visit 09/21/2017 11:30a Main Office Richard Fontanez, I10 Essential (primary) BRAKE TESTER-C hypertension A69.20 Lyme disease, unspecified Office Visit 08/21/2017 10:30a Main Office Richard Fontanez, R41.3 Other amnesia BRAKE TESTER-C S50.861A Insect bite (nonvenomous) of right forearm, init encntr I48.91 Unspecified atrial fibrillation Office Visit 08/16/2017 10:30a Main Office Willis Johnson, H53.10 Unspecified MD subjective visual disturbances R41.3 Other amnesia Office Visit 08/10/2017 10:15a Main Office Cecile R53.81 Other malaise Shortle, RN DIGESTIVE Office Visit 08/07/2017 11:15a Main Office Cecile S50.861A Insect bite Shortle, RN DIGESTIVE (nonvenomous) of right forearm, init encntr Office Visit 06/23/2017 2:30p Main Office Cecile R21 Rash and other Shortle, RN DIGESTIVE nonspecific skin eruption R20.2 Paresthesia of skin Office Visit 06/19/2017 9:30a Main Office Yamilet Obrien, R20.2 Paresthesia of skin M.D., R.D. S50.861A Insect bite (nonvenomous) of right forearm, init encntr R94.5 Abnormal results of liver function studies Office Visit 06/16/2017 9:45a Main Office Cecile Gutierrez, R20.2 Paresthesia of skin RN DIGESTIVE I10 Essential (primary) hypertension Office Visit 01/30/2017 10:15a Main Office Richard Fontanez, I10 Essential (primary) BRAKE TESTER-C hypertension Office Visit 01/13/2017 11:30a Main Office Richard Fontanez, I10 Essential (primary) BRAKE TESTER-C hypertension Z12.31 Encntr screen mammogram for malignant neoplasm of breast Office Visit 12/23/2016 11:15a Main Office [place] RWilliam Fontanez, I10 Essential (primary) BRAKE TESTER-C hypertension I48.91 Unspecified atrial fibrillation Office Visit 12/02/2016 3:45p Main Office Shawnti R. Storm, I10 Essential (primary) BRAKE TESTER-C hypertension I48.91 Unspecified atrial fibrillation Office Visit 04/14/2016 3:00p Main Office Shawnti R. Storm, I10 Essential (primary) BRAKE TESTER-C hypertension I48.0 Paroxysmal atrial fibrillation Office Visit 03/01/2016 2:45p Main Office Shawnti R. Storm, I10 Essential (primary) BRAKE TESTER-C hypertension I48.0 Paroxysmal atrial fibrillation Office Visit 02/09/2016 2:45p Main Office Riocwntсергей RWilliam Fontanez, I10 Essential (primary) BRAKE TESTER-C hypertension Office Visit 01/19/2016 3:00p Main Office [place] RWilliam Fontanez, I10 Essential (primary) BRAKE TESTER-C hypertension Office Visit 11/27/2015 3:00p Main Office [place] RWilliam Fontanez, I10 Essential (primary) BRAKE TESTER-C hypertension S50.861A Insect bite (nonvenomous) of right forearm, init encntr Office Visit 09/22/2015 10:45a Main Office Richard Fontanez, I10 Essential (primary) BRAKE TESTER-C hypertension Office Visit 09/08/2015 9:30a Main Office Richard RWilliam Fontanez, I10 Essential (primary) BRAKE TESTER-C hypertension M41.9 Scoliosis, unspecified Office Visit 09/04/2015 11:00a Main Office Willis Johnson, S90.851A Superficial foreign body, right foot, initial encounter B35.3 Tinea pedis Office Visit 08/03/2015 2:30p Main Office Richard Jose J11.89 Influenza due to Storm, BRAKE TESTER-C unidentified influenza virus w oth manifest Office Visit 04/06/2015 3:00p Main Office Bianca S80.929A Unsp superficial Davina, injury of unsp BRAKE TESTER-C lower leg, init encntr Office Visit 05/13/2014 10:45a Main Office Shawnti R. 401.9 Hypertension Unspec Storm, BRAKE TESTER-C 788.39 Incontinence Urinary Other Office Visit 10/17/2013 2:00p Main Office Shawnti R. V70.0 Examination General Storm, BRAKE TESTER-C Medical Routine AT [facility] 401.9 Hypertension Unspec 782.9 Skin & Integumentary Tissue Other Symptoms V06.1 Lvoafpubix-Trrahpp-Kgqgcfto Combined (DTaP) Office Visit 07/18/2013 2:30p Main Office Shawnti R. 401.9 Hypertension Unspec Storm, BRAKE TESTER-C Office Visit 06/27/2013 10:00a Main Office Shawnti R. 401.9 Hypertension Unspec Storm, BRAKE TESTER-C Office Visit 05/30/2013 12:00p Main Office Shawnti R. 401.9 Hypertension Unspec Storm, BRAKE TESTER-C Office Visit 04/30/2013 10:45a Main Office Shawnti R. 401.9 Hypertension Unspec Storm, BRAKE TESTER-C 427.31 Atrial Fibrillation 300.02 Anxiety Disorder Generalized Office Visit 04/16/2013 2:15p Main Office Shawnti R. 401.9 Hypertension Unspec Storm, BRAKE TESTER-C 427.31 Atrial Fibrillation Plan of Treatment Future Appointment(s):09/28/2018 3:00 pm - ANITRA Almaraz-C at Main [id number]/28/2018 - ANITRA Almaraz-CI10 Essential (primary) hypertensionNew Medication:Verapamil HCL ER 100 mg - 1 by mouth every dayLosartan Potassium 100 mg - 1 by mouth every dayComments:decrease verapamil and increase losartan, will follow in one month, sooner if neededFollow up:1 month, 30 minutesRecommendations:DECREASE VERAPAMIL TO 100MG DAILY, INCREASE LOSARTAN TO 100MG DAILY...IF YOUR BLOOD PRESSURE IS TOO LOW THEN WE CAN STOP THE VERAPAMIL. CONTINUE CHECKING YOUR BLOOD PRESSURE, I WILL SEE YOU IN ONE FPQXDV45.9 Edema, unspecifiedComments:continue HCTZ
[2018-09-30 15:45] VITALS: BP 126/86
--- NOTE | 2018-10-01 18:36 | ED ---
Skin Complaint - HPI Summary HPI Summary: Pt. is a 73 y.o female who presents to the for evaluation of possible insect bite to left upper leg x 2 days. Pt. states she was outside gardening when she noticed itching to left upper leg. Pt. was unable to examine area given its location. Pt. states she just finished doxy for lyme disease. Pt. does not believe it was a tick bite. Sxs are mild in severity. Touching are makes sxs worse. Nothing makes sxs better. - History of Current Complaint Chief Complaint: EDAnimalBite Time Seen by Provider: 09/30/18 14:00 Stated Complaint: POSS SPIDER BITE PER PT Hx Obtained From: Patient Pain Intensity: 2 Pain Scale Used: 0-10 Numeric - Additional Pertinent History Primary Care Physician: EVERTON - Allergy/Home Medications Allergies/Adverse Reactions: Allergies Allergy/AdvReac Type Severity Reaction Status Date / Time No Known Allergies Allergy Verified 09/30/18 12:53 Home Medications: Home Medications Atenolol 12.5 mg PO DAILY 09/30/18 [History Confirmed 09/30/18] Hydrochlorothiazide TAB* [Hydrodiuril TAB*] 25 mg PO DAILY 09/30/18 [History Confirmed 09/30/18] Losartan Potassium 12.5 mg PO DAILY 09/30/18 [History Confirmed 09/30/18] Rivaroxaban TAB(*) [Xarelto 20 mg] 20 mg PO DAILY 09/30/18 [History Confirmed ] Verapamil HCl [Verapamil Sr] 120 mg PO DAILY 09/30/18 [History Confirmed ] PMH/Surg Hx/FS Hx/Imm Hx Previously Healthy: Yes Endocrine/Hematology History: Denies: Hx Diabetes Cardiovascular History: Reports: Hx Hypertension Denies: Hx Pacemaker/ICD History: Denies: Hx Renal Disease Sensory History: Denies: Hx Contacts or Glasses, Hx Hearing Aid Opthamlomology History: Denies: Hx Contacts or Glasses Psychiatric History: Denies: Hx Panic Disorder - Cancer History Hx Chemotherapy: No Hx Radiation Therapy: No - Surgical History Surgery Procedure, Year, and Place: DEVIATED SEPTUM - Immunization History Immunizations Up to Date: Unable to Obtain/Confirm Infectious Disease History: No Infectious Disease History: Denies: Traveled Outside the [place] in Last 30 Days - Family History Known Family History: Positive: Hypertension, Non-Contributory - Social History Occupation: Retired Lives: Alone Alcohol Use: Occasionally Alcohol Amount: about 3 beverages per week Substance Use Type: Reports: None Smoking Status (MU): Former Smoker Review of Systems Constitutional: Negative Negative: Fever, Chills Positive: Other - possible insect bite to left proximal leg All Other Systems Reviewed And Are Negative: Yes Physical Exam Triage Information Reviewed: Yes Vital Signs On Initial Exam: Initial Vitals Temp Pulse Resp BP Pulse Ox 98.2 F 81 16 188/119 98 09/30/18 12:49 09/30/18 12:49 09/30/18 12:49 09/30/18 12:49 09/30/18 12:49 Vital Signs Reviewed: Yes Appearance: Positive: Well-Appearing - Pt. sitting up in bed in NAD. Skin: Positive: Warm, Dry, Other - Quarter size area of ecchymosis noted to left upper posterior leg. Center is mildly induration. Minimal tenderness. No erythema. Head/Face: Positive: Normal Head/Face Inspection Eyes: Positive: Normal, EOMI, LEW Neck: Positive: Supple Neurological: Positive: Normal, CN Intact II-III Psychiatric: Positive: Affect/Mood Appropriate Diagnostics - Vital Signs Vital Signs Temp Pulse Resp BP Pulse Ox 09/30/18 15:41 98.2 F 74 17 126/86 96 09/30/18 13:15 84 142/85 98 09/30/18 12:49 98.2 F 81 16 188/119 98 - Laboratory Lab Statement: Any lab studies that have been ordered have been reviewed, and results considered in the medical decision making process. Course/Dx - Differential Diagnoses - Skin Complaint Differential Diagnoses: Abscess, Cellulitis, MRSA, Scabies, Tinea - Diagnoses Provider Diagnoses: Rash, Ecchymosis Discharge - Sign-Out/Discharge Documenting (check all that apply): Patient Departure Patient Received Moderate/Deep Sedation with Procedure: No - Discharge Plan Condition: Good Disposition: HOME Patient Education Materials: Insect Bite or Sting (ED) Referrals: Richard Fontanez NP [Primary Care Provider] - Additional Instructions: Follow up with PCP in 2-3 days for recheck Avoid itching area Apply warm/cool compresses Return to ER for increased redness, swelling, drainage, or if concerned - Billing Disposition and Condition Condition: GOOD Disposition: Home
== END 2018-09-30 15:41 | disposition home or self-care (01) ==
LOC: ED 12:46
DX: R21 Rash and other nonspecific skin eruption (principal); R58 Hemorrhage, not elsewhere classified; I10 Essential (primary) hypertension; Z79.899 Other long term (current) drug therapy; Z87.891 Personal history of nicotine dependence
CPT/HCPCS: 99282

== ENCOUNTER 2021-07-06 23:14 | Observation (INO) ==
[2021-07-06] MEDS ORDERED: NS 0.9% 1000 ml BAG 1,000 ML IV ONE (23:16)
[2021-07-06] MEDS ORDERED: Iodixanol (CONTRAST) 320 MG/ML 100 ML SDV IV ONE (23:33)
[2021-07-07] LABS: ABS Eosinophils 0.1 10^3/ul (0-0.6); ABS Lymphocytes 3.5 10^3/ul (1.0-4.8); ABS Monocytes 0.8 10^3/ul (0-0.8); ABS Neutrophils 4.6 10^3/ul (1.5-7.7); Eosinophil % 0.9 %; Hematocrit 45 % (35-47); Hemoglobin 15.6 g/dL (12.0-16.0); Mean Corpuscular HGB Conc 35 g/dL (31-36); Mean Corpuscular Hemoglobin 32 pg (27-31); Mean Corpuscular Volume 91 fL (80-97); Mean Platelet Volume 9.4 fL (7.4-10.4); Platelet Count 220 10^3/uL (150-450); Red Blood Count 4.92 10^6 /uL (3.70-4.87); Red Cell Distribution Width 13 % (10-15)
[2021-07-07 00:22] LABS: Albumin 4.5 g/dL (3.2-5.2); Albumin/Globulin Ratio 1.6 (1-3); Globulin 2.9 g/dL (2-4); HDL Cholesterol 83.2 mg/dL; Potassium 3.3 mmol/L (3.5-5.0); Total Protein 7.4 g/dL (6.4-8.9); eGFR CKD-EPI 82.5 (>60)
[2021-07-07 00:27] LABS: Activated Partial Thrombo Time 29.7 seconds (26.0-38.0); INR 1.01 (0.86-1.15)
[2021-07-07 02:04] LABS: Magnesium 1.9 mg/dL (1.9-2.7)
[2021-07-07 02:19] LABS: TSH Ultra Thyroid Stim Horm 4.77 mcIU/mL (0.34-5.60)
[2021-07-07 02:29] LABS: High Sensitivity Troponin 1 Hr 16 pg/mL (<15)
[2021-07-07 06:20] LABS: ABS Eosinophils 0.1 10^3/ul (0-0.6); ABS Lymphocytes 3.3 10^3/ul (1.0-4.8); ABS Monocytes 0.6 10^3/ul (0-0.8); ABS Neutrophils 3.8 10^3/ul (1.5-7.7); Eosinophil % 0.7 %; Hematocrit 45 % (35-47); Hemoglobin 15.1 g/dL (12.0-16.0); Lymphocyte % 42.1 %; Mean Corpuscular HGB Conc 33 g/dL (31-36); Mean Corpuscular Hemoglobin 31 pg (27-31); Mean Corpuscular Volume 93 fL (80-97); Mean Platelet Volume 9.5 fL (7.4-10.4); Platelet Count 191 10^3/uL (150-450); Red Blood Count 4.85 10^6 /uL (3.70-4.87); Red Cell Distribution Width 13 % (10-15); White Blood Count 7.8 10^3/uL (3.5-10.8)
[2021-07-07] MEDS ORDERED: Potassium Chlor 20 meq TAB.ER PO ONE (06:23)
[2021-07-07 06:56] LABS: Calcium 9.6 mg/dL (8.6-10.3); Potassium 3.5 mmol/L (3.5-5.0); eGFR CKD-EPI 91.2 (>60)
[2021-07-07] MEDS ORDERED: LOSARTAN POTASSIUM 25 MG PO SCH (09:00)
[2021-07-07] MEDS ORDERED: Labetalol IV 5 MG/ML 20 ml VIAL IV PUSH PRN (19:38)
[2021-07-08 16:13] VITALS: BP 133/90
== END 2021-07-08 18:30 | disposition home or self-care (01) ==
LOC: ED 23:14 → EDHOLD 23:14 → SUATTDRO 07-07 01:38 → MEDTELE 07-07 06:22
PROVIDERS: ADMIT Internal Medicine; ATTEND Hospitalist